=== PATIENT | male | born 1965 | race Caucasian/White ===

== ENCOUNTER 2017-06-16 23:57 | Emergency (ER) | payer OTHER ==
--- NOTE | 2017-06-17 02:00 | RADIOLOGY REPORT (SQ) ---
EXAM DESCRIPTION: CHEST SINGLE VIEW CLINICAL HISTORY: 51 years, Male, cp COMPARISON: None. FINDINGS: Normal lung volume, clear parenchyma, normal cardiac silhouette, and intact bony thorax. IMPRESSION: No acute cardiopulmonary findings.
[2017-06-17 02:07] LABS: ABSOLUTE BASOPHILS # (AUTO) 0.1 10^3/uL (0.0-0.2); ABSOLUTE EOSINOPHILS # (AUTO) 0.1 10^3/uL (0.0-0.6); ABSOLUTE LYMPHOCYTES (AUTO) 1.3 10^3/uL (0.5-4.7); ABSOLUTE MONOCYTES (AUTO) 0.8 10^3/uL (0.1-1.4); EOSINOPHILS % (AUTO) 1.4 % (0-6); HEMATOCRIT 36.3 % (37.9-51.0); HEMOGLOBIN 11.5 g/dL (13.5-17.0); LYMPHOCYTES % (AUTO) 15.7 % (13-45); MEAN CORPUSCULAR HGB CONC 31.7 g/dL (32.0-36.0); MEAN CORPUSCULAR VOLUME 82 fl (80-97); MONOCYTES % (AUTO) 9.3 % (3-13); RED BLOOD COUNT 4.43 10^6/uL (4.35-5.55); RED CELL DISTRIBUTION WIDTH 23.5 % (11.5-14.0); SEGMENTED NEUTROPHILS % (AUTO) 72.6 % (42-78); TOTAL CELLS COUNTED % (AUTO) 100 %; WHITE BLOOD COUNT 8.2 10^3/uL (4.0-10.5)
[2017-06-17 02:09] LABS: PLATELET COUNT 50 10^3/uL (150-450)
[2017-06-17 02:10] LABS: ALANINE AMINOTRANSFERASE 74 U/L (21-72); ALBUMIN 4.3 g/dL (3.5-5.0); ALKALINE PHOSPHATASE 179 U/L (38-126); ANION GAP 19 (5-19); ASPARTATE AMINO TRANSFERASE 278 U/L (17-59); BILIRUBIN,DIRECT 1.1 mg/dL (0.0-0.4); BILIRUBIN,TOTAL 1.7 mg/dL (0.2-1.3); BLOOD UREA NITROGEN 8 mg/dL (7-20); CALCIUM 8.6 mg/dL (8.4-10.2); CARBON DIOXIDE 27 mmol/L (22-30); CHLORIDE 102 mmol/L (98-107); CREATINE KINASE 97 U/L (55-170); GLUCOSE 86 mg/dL (75-110); POTASSIUM 3.7 mmol/L (3.6-5.0); SODIUM 147.8 mmol/L (137-145); TOTAL PROTEIN 7.6 g/dL (6.3-8.2)
--- NOTE | 2017-06-17 02:15 | ER Document Report ---
ED General - General Chief Complaint: Chest Pain Stated Complaint: CHEST PAIN Time Seen by Provider: 06/17/17 02:14 Notes: Patient is a 51-year-old male who presents with complaint of chest pain. He says chest pain is intermittent very sharp shooting pain that is very quick. Rates from the top of the left chest. He says it hurts when he moves a certain way or if he takes a deep breath. Patient has a history of hepatic cirrhosis. He does continue to drink alcohol. Says pain is been there since yesterday afternoon. No other complaints at this time. Patient did just move her Friday. He moved here from [place]. He was followed by a specialist there due to his cirrhosis. He denies any exquisite or new abdominal pain. Denies difficulty breathing. Denies fevers. TRAVEL OUTSIDE OF THE [place] IN LAST 30 DAYS: No - Related Data Allergies/Adverse Reactions: No Known Allergies Allergy (Verified 06/17/17 03:11) Past Medical History - Social History Smoking Status: Current Every Day Smoker Frequency of alcohol use: Heavy Drug Abuse: None Family History: Reviewed & Not Pertinent Review of Systems - Review of Systems Notes: My Normal Review Basic REVIEW OF SYSTEMS: CONSTITUTIONAL : Denies fever, chills, or sweats. Denies recent illness. EENT: Denies eye, ear, throat, or mouth pain or symptoms. Denies nasal or sinus congestion. CARDIOVASCULAR: Intermittent sharp chest pain. RESPIRATORY: Denies cough, cold, or chest congestion. Denies shortness of breath, difficulty breathing, or wheezing. GASTROINTESTINAL: Denies abdominal pain. Denies nausea, vomiting, or diarrhea. Denies constipation. Last BM: GENITOURINARY: Denies difficulty urinating, painful urination, burning, frequency, or blood in urine. MUSCULOSKELETAL: Denies neck or back pain or joint pain or swelling. SKIN: Denies rash or skin lesions. NEUROLOGICAL: Denies altered mental status or loss of consciousness. Denies headache. Denies weakness or paralysis or loss of use of either side. Denies problems with gait or speech. Denies sensory or motor loss. ALL OTHER SYSTEMS REVIEWED AND NEGATIVE. Physical Exam - Vital signs Vitals: Temp Pulse Resp BP Pulse Ox 97.9 F 84 16 132/82 H 97 06/17/17 00:15 06/17/17 00:15 06/17/17 00:15 06/17/17 00:15 06/17/17 00:15 - Notes Notes: General Appearance: Well nourished, alert, cooperative, no acute distress, mild to moderate obvious discomfort. Vitals: reviewed, See vital signs table. Head: no swelling or tenderness to the head Eyes: PERRL, EOMI, Conjuctiva clear Mouth: No decreasd moisture Chest wall: Patient has very easily reproducible pain to palpation over the left upper chest wall at the left costochondral junction. Pain is also made worse when he takes a deep breath and when I have him roll or move. Lungs: No wheezing, No rales, No rhonci, No accessory muscle use, good air exchange bilaterally. Heart: Normal rate, Regular rythm, No murmur, no rub Abdomen: Abdomen is distended but soft from cirrhosis. He does have a umbilical hernia which is easily reducible. She has some mild tenderness when I reduce the hernia. Otherwise remainder of the abdomen is nontender. Extremities: strength 5/5 in all extremities, good pulses in all extremities, no swelling or tenderness in the extremities, no edema. Skin: warm, dry, appropriate color, no rash Neuro: speech clear, oriented x 3, normal affect, responds appropriately to questions. Course - Re-evaluation Re-evalutation: 06/17/17 07:31 Patient's chest pain is very consistent muscle skeletal chest pain and that it is very easily reproducible palpation and also easily reproduced with movement or taking a deep breath. His cardiac enzymes are negative. He looks well. I will give him referral to GI so they can have further management of his liver cirrhosis. I encourage him return to ER if he has worsening pain, difficulty breathing, or feels unwell. Patient agrees with plan will be discharged home. Dictation of this chart was performed using voice recognition software; therefore, there may be some unintended grammatical errors. - Vital Signs Vital signs: Temp Pulse Resp BP Pulse Ox 97.9 F 84 14 116/78 97 06/17/17 00:15 06/17/17 00:15 06/17/17 04:01 06/17/17 04:01 06/17/17 04:01 - Laboratory Result Diagrams: 06/17/17 01:47 06/17/17 01:47 Laboratory results interpreted by me: 06/17/17 06/17/17 01:47 01:47 Hgb 11.5 L Hct 36.3 L MCH 26.0 L MCHC 31.7 L RDW 23.5 H Plt Count 50 L Sodium 147.8 H Total Bilirubin 1.7 H Direct Bilirubin 1.1 H AST 278 H ALT 74 H Alkaline Phosphatase 179 H - EKG Interpretation by Me Additional EKG results interpreted by me: 06/17/17 02:15 EKG is reviewed and interpreted by me. EKG shows normal sinus rhythm with rate of [address] segment elevation or depression. No ischemic T-wave inversions. MS interval, QRS duration are within normal range. QTc interval is slightly prolonged. Discharge - Discharge Clinical Impression: Chest pain Qualifiers: Chest pain type: unspecified Qualified Code(s): R07.9 - Chest pain, unspecified Condition: Good Disposition: HOME, SELF-CARE Instructions: Family Physicians / Practices, Oral Narcotic Medication ([facility]) Additional Instructions: C NORMAL EXAM AND WORKUP: At this time, your examination and workup show no significant abnormality. No significant abnormal physical findings were noted. All laboratory, EKG, and imaging (x-ray) studies that were ordered show no significant abnormality. Although your examination and all studies that were ordered showed no significant abnormal finding, there are no examinations and no studies that are 100% accurate. There is always the possibility that some abnormality could exist and not be detected with physical examination or within the limits and capabilities of laboratory and other studies. You should return or follow up as you were instructed on your visit today for further evaluation if your symptoms do not resolve. CHEST WALL PAIN: Your chest pain may be coming from the chest wall. This is often caused by straining the muscles or joints in the chest during physical activity, direct trauma, coughing, or vigorous vomiting. Persons with arthritis are especially prone to this type of pain, due to inflammation of the cartilage joints near the breast bone. Occasionally, no cause can be found. Rest from strenuous physical activity. This kind of chest pain is usually made worse by movement of the chest. Depending on the symptoms, we may prescribe medicine for pain, muscle relaxation, and antiinflammatory effects. If the pain is new, and seems to be due to muscle strain, cold packs can help. Otherwise, apply gentle warmth to the painful area for 15 minutes every hour or two. You should call contact the doctor immediately if things change. Further evaluation is needed if you develop a fever or cough, if the nature of the pain changes, or if you become short of breath. FOLLOW-UP CARE: If you have been referred to a physician for follow-up care, call the physician s office for an appointment as you were instructed or within the next two days. If you experience worsening or a significant change in your symptoms, notify the physician immediately or return to the Emergency Department at any time for re-evaluation. Please only take the [place] when pain is intractable. Otherwise, take Tylenol for pain. Do not take the [place] when you are intoxicated with alcohol as it may depress your respiratory drive. Please follow up with the GI physician, Dr. Turcios, for further management of your cirrhosis. Please also establish yourself with a local primary care doctor. I have included a list of local primary care doctors. Return to the ER immediately if you have worsening pain, fevers, difficulty breathing, or feel that you are worsening. Referrals: SEBASTIAN TURCIOS MD [ACTIVE STAFF] - Follow up in 3-5 days
[2017-06-17 02:28] LABS: CREATINE KINASE MB 0.66 ng/mL (<4.55); TROPONIN I < 0.012 ng/mL
[2017-06-17] MEDS ORDERED: HYDROCODONE/ACETAMINOPHEN 5-325 MG TABLET PO ONE (02:32)
[2017-06-17] MEDS ORDERED: HYDROCODONE/ACETAMINOPHEN 5-325 MG (6 TAB/ER DISP) PO PRN (03:45)
[2017-06-17 04:17] VITALS: BP 116/78
--- NOTE | 2017-06-17 09:27 | EKG REPORT ---
SEVERITY:- ABNORMAL ECG - SINUS RHYTHM NONSPECIFIC INTRAVENTRICULAR CONDUCTION DELAY LOW VOLTAGE IN FRONTAL LEADS BORDERLINE R WAVE PROGRESSION, ANTERIOR LEADS : Confirmed by: Linda Arellano 17-Jun-2017 09:26:48
== END 2017-06-17 04:30 | disposition home or self-care (01) ==
LOC: ER 23:57
DX: R07.9 Chest pain, unspecified (principal); K74.60 Unspecified cirrhosis of liver; F10.10 Alcohol abuse, uncomplicated; F17.200 Nicotine dependence, unspecified, uncomplicated
CPT/HCPCS: 36415; 71045; 80053; 82550; 82553; 83690; 84484; 85025; 93005; 93010; 99285

== ENCOUNTER 2017-06-17 16:20 | Inpatient (IN) | payer OTHER ==
[2017-06-17] MEDS ORDERED: ONDANSETRON HCL INJ/PF 4 MG/2 ML SDV ONE (16:51)
[2017-06-17] MEDS ORDERED: NORMAL SALINE 250 ML IV PRN (17:04)
[2017-06-17] MEDS ORDERED: PANTOPRAZOLE SODIUM 40 MG VIAL IV ONE (17:07)
[2017-06-17] MEDS ORDERED: OCTREOTIDE ACETATE INJ/PF 100 MCG/1 ML SDV SUBCUT ONE (17:10)
[2017-06-17] MEDS ORDERED: ONDANSETRON HCL INJ/PF 4 MG/2 ML SDV IV ONE ×2 (17:11→17:51)
[2017-06-17 17:14] LABS: INTERNATIONAL RATION (INR) 1.37; PROTHROMBIN TIME 17.7 SEC (11.4-15.4)
[2017-06-17 17:15] LABS: PARTIAL THROMBOPLASTIN TIME 34.3 SEC (23.5-35.8)
[2017-06-17] MEDS ORDERED: FENTANYL CITRATE INJ/PF 100 MCG/2 ML AMPUL IV ONE (17:15)
--- NOTE | 2017-06-17 17:16 | ER Document Report ---
ED GI Bleed / Rectal Pain - General Mode of Arrival: Ambulatory Information source: Patient TRAVEL OUTSIDE OF THE [place] IN LAST 30 DAYS: No <CRISPIN GOMEZ - Last Filed: 06/17/17 19:03> <JAM CABRALES - Last Filed: 06/17/17 19:18> - General Chief Complaint: GI Bleeding Stated Complaint: VOMITING Time Seen by Provider: 06/17/17 16:48 Notes: Patient is a 51 year old male with a history of cirrhosis presents to the emergency department complaining of hematemesis onset 4 hours ago. Patient states that he decided to come to the emergency room after vomiting around a pint of red blood. Patient states he vomited around another pint since being in the emergency department. He further states that there is also some blood clots in his vomit. Patients associated symptoms include chest pain, lower abdominal pain, shortness of breath and dizziness. Patient denies any fevers or bloody stool. Patient states that he believes he acquired Cirrhosis from drinking well water for approximately 10 years when he was in an orphanage. Patient also states that he would like a paracentesis performed stating his last one was 1.5 weeks ago. Patient further states he has had multiple endoscopies looking for varices , but none was ever found. (CRISPIN GOMEZ) - Related Data Allergies/Adverse Reactions: No Known Allergies Allergy (Verified 06/17/17 03:11) Past Medical History - General Information source: Patient - Social History Smoking Status: Current Every Day Smoker Family History: Reviewed & Not Pertinent GI Medical History: Reports: Hx Cirrhosis <CRISPIN GOMEZ - Last Filed: 06/17/17 19:03> - Past Medical History Cardiac Medical History: Reports: Hx Hypertension <JAM CABRALES - Last Filed: 06/17/17 19:18> Review of Systems - Review of Systems Constitutional: No symptoms reported EENT: No symptoms reported Cardiovascular: See HPI, Chest pain, Dizziness Respiratory: See HPI, Short of breath Gastrointestinal: See HPI, Abdominal pain, Vomiting, Blood in vomit Genitourinary: No symptoms reported Male Genitourinary: No symptoms reported Musculoskeletal: No symptoms reported Skin: No symptoms reported Hematologic/Lymphatic: No symptoms reported Neurological/Psychological: No symptoms reported -: Yes All other systems reviewed and negative <CRISPIN GOMEZ - Last Filed: 06/17/17 19:03> Physical Exam <CRISPIN GOMEZ - Last Filed: 06/17/17 19:03> <JAM CABRALES - Last Filed: 06/17/17 19:18> - Vital signs Vitals: Temp Pulse Resp BP Pulse Ox 98.5 F 125 H 30 H 116/90 H 99 06/17/17 16:30 06/17/17 16:30 06/17/17 16:30 06/17/17 16:30 06/17/17 16:30 - Notes Notes: GENERAL: Alert, interacts well. Uncomfortable, breathing rapidly. Vomiting dark red blood, approximately 2 cups in bag at bedside. HEAD: Normocephalic, atraumatic. EYES: Pupils equal, round, and reactive to light. Extraocular movements intact. ENT: Oral mucosa moist, tongue midline. NECK: Full range of motion. Supple. Trachea midline. LUNGS: Poor air movement. No wheezes, rales, or rhonchi. HEART: Tachycardia. No murmurs, gallops, or rubs. ABDOMEN: Abdomen enlarged and soft, no rigidity, fluid wave, no tympany. Umbilical and paraumbilical reducible hernia. Tender to palpation superiorly. Bowel sounds present in all 4 quadrants. EXTREMITIES: Asterixis. Moves all 4 extremities spontaneously. No edema, radial and dorsalis pedis pulses 2/4 bilaterally. No cyanosis. NEUROLOGICAL: Alert and oriented x3. Normal speech. PSYCH: Normal affect, normal mood. SKIN: Warm, dry, normal turgor. Multiple spider angiomas located on back, petechiae, plethora, jaundiced. (CRISPIN GOMEZ) Course - Laboratory Result Diagrams: 06/17/17 17:20 06/17/17 16:45 <CRISPIN GOMEZ - Last Filed: 06/17/17 19:03> - Laboratory Result Diagrams: 06/17/17 17:20 06/17/17 16:45 <JAM CABRALES - Last Filed: 06/17/17 19:18> - Re-evaluation Re-evalutation: 06/17/17 19:16 Patient immediately started on Protonix bolus and drip, octreotide bolus and drip given as well, typed and crossed and given emergency release blood, Dr. Velazquez was contacted for possible emergent endoscopy. He states that he needs to know the patient's INR but then once he knows that he will take the patient for endoscopy. Patient understands why he is n.p.o. Discussed patient with Dr. Kumar hospitalist who agrees to accept the patient to her service as an admission in the intensive care unit. Patient's vomiting was not initially controlled with Zofran, then Reglan was given and this did control his vomiting. A proximally an hour and half after arrival the patient stopped vomiting blood is now only spitting up clear liquids. Hemoglobin is 9.2, platelets are quite low at 33, INR is not as prolonged as I would have expected at 1.37, CMP shows elevated total and direct bilirubin, and elevated anion gap at 22, elevated LFTs with AST of 247, ALT 73, alkaline phosphatase at 147. Ammonia is elevated at 35.7 although it is not causing any altered mental status. Chest x-ray shows no acute process. Patient has stabilized quite a bit. Dr. Velazquez is about to take the patient for endoscopy now. Patient will go to the intensive care unit afterwards. (JAM CABRALES) - Vital Signs Vital signs: Temp Pulse Resp BP Pulse Ox 98.5 F 125 H 17 143/76 H 98 06/17/17 16:30 06/17/17 16:30 06/17/17 18:46 06/17/17 18:46 06/17/17 18:46 - Laboratory Laboratory results interpreted by me: 06/17/17 06/17/17 06/17/17 16:45 16:45 16:45 RBC Hgb Hct MCH RDW Plt Count Seg Neutrophils % Lymphocytes % Absolute Lymphocytes PT 17.7 H Anion Gap 22 H Glucose 129 H Total Bilirubin 2.9 H Direct Bilirubin 1.7 H AST 247 H ALT 73 H Alkaline Phosphatase 147 H Ammonia Crossmatch See Detail 06/17/17 06/17/17 17:20 17:20 RBC 3.52 L Hgb 9.2 L D Hct 28.6 L MCH 26.2 L RDW 23.3 H Plt Count 33 L Seg Neutrophils % 84.5 H Lymphocytes % 6.2 L Absolute Lymphocytes 0.4 L PT Anion Gap Glucose Total Bilirubin Direct Bilirubin AST ALT Alkaline Phosphatase Ammonia 35.7 H Crossmatch Critical Care Note - Critical Care Note Total time excluding time spent on procedures (mins): 60 <JAM CABRALES - Last Filed: 06/17/17 19:18> Discharge <CRISPIN GOMEZ - Last Filed: 06/17/17 19:03> - Discharge Admitting Provider: Hospitalist - [facility] Unit Admitted: ICU <JAM CABRALES - Last Filed: 06/17/17 19:18> - Discharge Clinical Impression: Upper GI bleed Liver failure Qualifiers: Liver failure chronicity: chronic Hepatic coma status: without hepatic coma Qualified Code(s): K72.10 - Chronic hepatic failure without coma Ascites Qualifiers: Ascites type: other type Qualified Code(s): R18.8 - Other ascites Condition: Critical Disposition: ADMITTED INPATIENT Scribe Attestation: 06/17/17 19:17 I personally performed the services described in the documentation, reviewed and edited the documentation which was dictated to the scribe in my presence, and it accurately records my words and actions. (JAM CABRALES) Scribe Documentation - Scribe Written by Shabanae:: Uriah Stringer, 06/17/2017 17:41 acting as scribe for :: John <CRISPIN GOMEZ - Last Filed: 06/17/17 19:03>
[2017-06-17 17:22] LABS: ALANINE AMINOTRANSFERASE 73 U/L (21-72); ALBUMIN 4.2 g/dL (3.5-5.0); ALKALINE PHOSPHATASE 147 U/L (38-126); ASPARTATE AMINO TRANSFERASE 247 U/L (17-59); BILIRUBIN,DIRECT 1.7 mg/dL (0.0-0.4); BILIRUBIN,TOTAL 2.9 mg/dL (0.2-1.3); BLOOD UREA NITROGEN 10 mg/dL (7-20); CALCIUM 8.7 mg/dL (8.4-10.2); GLUCOSE 129 mg/dL (75-110); TOTAL PROTEIN 7.6 g/dL (6.3-8.2)
--- NOTE | 2017-06-17 17:26 | RADIOLOGY REPORT (SQ) ---
EXAM DESCRIPTION: CHEST SINGLE VIEW COMPLETED DATE/TIME: 06/17/2017 5:19 pm REASON FOR STUDY: vomiting bright red blood COMPARISON: 06/17/2017 EXAM PARAMETERS: NUMBER OF VIEWS: One view. TECHNIQUE: Single frontal radiographic view of the chest acquired. RADIATION DOSE: NA LIMITATIONS: None. FINDINGS: LUNGS AND PLEURA: No opacities, masses or pneumothorax. No pleural effusion. MEDIASTINUM AND HILAR STRUCTURES: No masses. Contour normal. HEART AND VASCULAR STRUCTURES: Heart normal in size. Normal vasculature. BONES: No acute findings. HARDWARE: None in the chest. OTHER: No other significant finding. IMPRESSION: NO ACUTE RADIOGRAPHIC FINDING IN THE CHEST. TECHNICAL DOCUMENTATION: JOB ID: [id number] [employer]- All Rights Reserved
[2017-06-17 17:37] LABS: ANION GAP 22 (5-19); CHLORIDE 98 mmol/L (98-107); POTASSIUM 3.6 mmol/L (3.6-5.0)
[2017-06-17 17:38] LABS: CARBON DIOXIDE 22 mmol/L (22-30); SODIUM 142.4 mmol/L (137-145)
[2017-06-17 17:39] LABS: ABSOLUTE BASOPHILS # (AUTO) 0.1 10^3/uL (0.0-0.2); ABSOLUTE LYMPHOCYTES (AUTO) 0.4 10^3/uL (0.5-4.7); ABSOLUTE MONOCYTES (AUTO) 0.6 10^3/uL (0.1-1.4); ABSOLUTE NEUT (AUTO) 5.7 10^3/uL (1.7-8.2); BASOPHILS % (AUTO) 0.9 % (0-2); HEMATOCRIT 28.6 % (37.9-51.0); LYMPHOCYTES % (AUTO) 6.2 % (13-45); MEAN CORPUSCULAR HEMOGLOBIN 26.2 pg (27.0-33.4); MEAN CORPUSCULAR HGB CONC 32.3 g/dL (32.0-36.0); MEAN CORPUSCULAR VOLUME 81 fl (80-97); MONOCYTES % (AUTO) 8.4 % (3-13); RED BLOOD COUNT 3.52 10^6/uL (4.35-5.55); RED CELL DISTRIBUTION WIDTH 23.3 % (11.5-14.0); SEGMENTED NEUTROPHILS % (AUTO) 84.5 % (42-78); TOTAL CELLS COUNTED % (AUTO) 100 %; WHITE BLOOD COUNT 6.7 10^3/uL (4.0-10.5)
[2017-06-17] MEDS ORDERED: OCTREOTIDE ACETATE INJ/PF 100 MCG/1 ML SDV INJ PRN (17:39)
[2017-06-17 17:40] LABS: HEMOGLOBIN 9.2 g/dL (13.5-17.0)
[2017-06-17] MEDS: PANTOPRAZOLE SODIUM 40 MG VIAL IV PRN (17:40)
[2017-06-17 17:41] LABS: PLATELET COUNT 33 10^3/uL (150-450)
[2017-06-17] MEDS ORDERED: METOCLOPRAMIDE HCL INJ/PF 10 MG/2 ML SDV IV ONE (17:51)
[2017-06-17] MEDS ORDERED: DEXTROSE 40% GEL 15 GM TUBE PO PRN ×2 (17:52)
[2017-06-17] MEDS ORDERED: IPRATROPIUM/ALBUTEROL 0.5-2.5 MG/3 ML AMPUL NEB PRN (17:52)
[2017-06-17] MEDS ORDERED: GLUCAGON,HUMAN RECOMB 1 MG INJ SUBCUT PRN (17:52)
[2017-06-17] MEDS ORDERED: DEXTROSE 50%-WATER 25 GM/50 ML DISP.SYRIN IV PRN ×2 (17:52)
[2017-06-17] MEDS ORDERED: NORMAL SALINE 1000 ML 1,000 ML IV SCH (18:00)
[2017-06-17] MEDS: NORMAL SALINE 500 ML with OCTREOTIDE ACETATE 500 MCG IV PRN ×2 (18:12)
[2017-06-17] MEDS ORDERED: PHYTONADIONE INJ 10 MG/1 ML AMPULE SUBCUT ONE (19:00)
[2017-06-17 19:12] LABS: ABSOLUTE BASOPHILS # (AUTO) 0.1 10^3/uL (0.0-0.2); ABSOLUTE LYMPHOCYTES (AUTO) 0.4 10^3/uL (0.5-4.7); ABSOLUTE MONOCYTES (AUTO) 0.8 10^3/uL (0.1-1.4); ABSOLUTE NEUT (AUTO) 6.7 10^3/uL (1.7-8.2); HEMATOCRIT 29.3 % (37.9-51.0); HEMOGLOBIN 9.5 g/dL (13.5-17.0); LYMPHOCYTES % (AUTO) 5.3 % (13-45); MEAN CORPUSCULAR HEMOGLOBIN 26.4 pg (27.0-33.4); MEAN CORPUSCULAR HGB CONC 32.5 g/dL (32.0-36.0); MEAN CORPUSCULAR VOLUME 81 fl (80-97); MONOCYTES % (AUTO) 10.1 % (3-13); RED BLOOD COUNT 3.61 10^6/uL (4.35-5.55); RED CELL DISTRIBUTION WIDTH 23.1 % (11.5-14.0); SEGMENTED NEUTROPHILS % (AUTO) 83.6 % (42-78); TOTAL CELLS COUNTED % (AUTO) 100 %
[2017-06-17 19:17] LABS: PLATELET COUNT 32 10^3/uL (150-450)
[2017-06-17] MEDS ORDERED: PROPOFOL INJ 200 MG/20 ML VIAL IV ONE (19:37)
[2017-06-17] MEDS ORDERED: EPINEPHRINE INJ 1 MG/10 ML DISP.SYRIN ONE (19:39)
[2017-06-17] MEDS ORDERED: MORPHINE SULFATE 10 MG/ML INJ IV PRN (20:16)
[2017-06-17] MEDS ORDERED: OXYCODONE-ACETAMINOPHEN 5-325 MG TABLET PO PRN ×2 (20:16)
[2017-06-17] MEDS ORDERED: PROMETHAZINE HCL INJ 25 MG/1 ML VIAL IV PRN ×2 (20:16)
[2017-06-17] MEDS ORDERED: FENTANYL CITRATE INJ/PF 100 MCG/2 ML AMPUL IV PRN ×3 (20:16)
[2017-06-17] MEDS ORDERED: MEPERIDINE HCL/PF INJ 25 MG/1 ML DISP.SYRIN IV PRN (20:16)
[2017-06-17] MEDS ORDERED: DIPHENHYDRAMINE HCL 50 MG/ML VIAL IV PRN (20:16)
--- NOTE | 2017-06-17 20:34 | Operative Report ---
Operative Report DATE OF SURGERY: 06/17/17 Operative Report: The risks benefits and alternatives of the procedure explained to the patient in detail and informed consent is obtained.A GIF Olympus video scope was inserted into the patient's mouth and hypopharynx, the esophagus is identified intubated and insufflated ,the scope was then advanced through the esophagus stomach and duodenum, retroflexion maneuver is done, the esophagus stomach and first and second portions of the duodenum examined PREOPERATIVE DIAGNOSIS: Melena, GI bleeding rule out varices POSTOPERATIVE DIAGNOSIS: 2 columns of grade 2 varices that were prophylactically banded OPERATION: EGD with esophageal variceal banding SURGEON: SEBASTIAN TURCIOS ANESTHESIA: LMAC TISSUE REMOVED OR ALTERED: None. COMPLICATIONS: None. ESTIMATED BLOOD LOSS: None. INTRAOPERATIVE FINDINGS: As noted above. PROCEDURE: Patient tolerated procedure well. No immediate postprocedure complications are noted. He sent straight to the ICU following the procedure. PPI drip He may need a Sandostatin drip as well Transfuse as necessary We will follow-up as needed
--- NOTE | 2017-06-17 20:44 | PDOC CONSULTATION ---
Consultation Consult Date: 06/17/17 Attending physician:: SEBASTIAN TURCIOS Consult reason:: hematemesis, abnormal LFT. cirrhosis, excessive use of alcohol History of Present Illness Admission Date/PCP: 06/17/17 17:33 [facility] MD History of Present Illness: ALO RODRIGUEZ is a 51 year old male I was called to see this patient by the ED physician patient is an alcoholic that presented with hematemesis x 2 of dark blood there is no hemodynamic instability patient states has been scoped in the past, does not remember if he had varices denies the use of any NSAIDS patient continues to use alcohol on a daily basis according to the daughter. His INR is in the normal range he will need to be admitted to the [facility] prior to that will arrange urgent EGD patient will need Propofol sedation he is at risk for DT's he is in the process of being transfused patient to be admitted to the ICU Past Medical History Cardiac Medical History: Reports: Hypertension GI Medical History: Reports: Cirrhosis Social History Smoking Status: Current Every Day Smoker - Advance Directive Resuscitation Status: Full Code Family History Family History: Reviewed & Not Pertinent Parental Family History Reviewed: Yes Children Family History Reviewed: Unknown Sibling(s) Family History Reviewed.: Unknown Medication/Allergy Allergies/Adverse Reactions: No Known Allergies Allergy (Verified 06/17/17 03:11) Review of Systems Constitutional: ABSENT: fever(s), headache(s), night sweats, weakness Eyes: ABSENT: visual disturbances Ears: ABSENT: hearing changes Nose, Mouth, and Throat: ABSENT: mouth pain, sore throat Cardiovascular: ABSENT: edema, orthropnea, palpitations Respiratory: ABSENT: dyspnea, hemoptysis Gastrointestinal: PRESENT: melena, nausea, vomiting. ABSENT: diarrhea Genitourinary: ABSENT: dysuria, hematuria Musculoskeletal: ABSENT: deformity, joint swelling Integumentary: ABSENT: pruritus Neurological: ABSENT: syncope, tingling, tremor(s), vertigo Endocrine: ABSENT: polydipsia, polyphagia, polyuria Hematologic/Lymphatic: ABSENT: easy bruising Physical Exam Vital Signs: Temp Pulse Resp BP Pulse Ox 98 F 134 H 25 H 125/83 98 06/17/17 19:15 06/17/17 19:15 06/17/17 19:15 06/17/17 19:15 06/17/17 19:15 Intake & Output 06/16/17 06/17/17 06/18/17 06:59 06:59 06:59 Intake Total 290 Balance 290 General appearance: PRESENT: no acute distress, well-developed, well-nourished Head exam: PRESENT: atraumatic, normocephalic Eye exam: PRESENT: EOMI, PERRLA, scleral icterus. ABSENT: nystagmus, periorbital swelling Mouth exam: PRESENT: moist, neck supple Throat exam: ABSENT: tonsillar exudate, tonsillogmegaly Neck exam: ABSENT: meningismus, tenderness, thyromegaly Respiratory exam: PRESENT: symmetrical, unlabored. ABSENT: tachypnea, wheezes Cardiovascular exam: PRESENT: RRR, +S1, +S2 GI/Abdominal exam: PRESENT: soft. ABSENT: rebound, rigid, tenderness Extremities exam: ABSENT: joint swelling Musculoskeletal exam: PRESENT: full ROM Neurological exam: PRESENT: oriented to time, oriented to situation, CN II-XII grossly intact Psychiatric exam: PRESENT: appropriate affect Focused psych exam: PRESENT: restlessness Skin exam: PRESENT: normal color. ABSENT: mottled, pallor, petechiae, urticaria , vesicles Results Laboratory Results: 06/17/17 18:25 06/17/17 18:25 WBC 8.0 RBC 3.61 L Hgb 9.5 L Hct 29.3 L MCV 81 MCH 26.4 L MCHC 32.5 RDW 23.1 H Plt Count 32 L Seg Neutrophils % 83.6 H Lymphocytes % 5.3 L Monocytes % 10.1 Eosinophils % 0.0 Basophils % 1.0 Absolute Neutrophils 6.7 Absolute Lymphocytes 0.4 L Absolute Monocytes 0.8 Absolute Eosinophils 0.0 Absolute Basophils 0.1 Impressions: Chest X-Ray 06/17/17 17:05 IMPRESSION: NO ACUTE RADIOGRAPHIC FINDING IN THE CHEST. Assessment & Plan - Diagnosis (1) Abnormal LFTs Plan: likely secondary to alcoholic hepatitis patient will need to be screened for viral hepatitis A,B,C would expect his bilirubin to rise as the days progress (2) Ascites Qualifiers: Ascites type: other type Qualified Code(s): R18.8 - Other ascites Plan: will need paracentesis at some point will need to be performed under ultrasound guidance his INR is within the normal range following that he will need maximal diuretics lasix and aldactone (3) Liver failure Qualifiers: Liver failure chronicity: chronic Hepatic coma status: without hepatic coma Qualified Code(s): K72.10 - Chronic hepatic failure without coma Plan: due to alcohol abuse at risk for DT's will need ativan drip check phosphorus (4) Upper GI bleed Plan: will need urgent EGD could have varices vs possible peptic ulcer disease Risks, benefits and alternatives are discussed he will need Propofol sedation, he is not likely to be able to be sedated with consicous sedation medications agree with transfusion PPI drip Sandostatin drip as well
[2017-06-17] MEDS: IPRATROPIUM/ALBUTEROL 0.5-2.5 MG/3 ML AMPUL NEB SCH (21:17)
[2017-06-17] MEDS: LORAZEPAM INJ 2 MG/1 ML VIAL IV PRN (21:28)
[2017-06-17] MEDS ORDERED: INFLUENZA ADLT QUAD (36MOS+) 2017-18 VAC 0.5 ML SYR IM PRN (23:12)
[2017-06-18] MEDS: THIAMINE HCL 100 MG, FOLIC ACID 1 MG in NORMAL SALINE 250 ML IV SCH ×2 (01:20→23:38)
[2017-06-18] MEDS: LORAZEPAM INJ 2 MG/1 ML VIAL IV PRN ×4 (01:36→23:34)
[2017-06-18] MEDS: PANTOPRAZOLE SODIUM 40 MG VIAL IV PRN (01:46)
[2017-06-18] MEDS: NORMAL SALINE 500 ML with OCTREOTIDE ACETATE 500 MCG IV PRN ×4 (01:46→13:39)
[2017-06-18 02:18] LABS: URINE AMPHETAMINES SCREEN NEGATIVE; URINE BARBITURATES SCREEN NEGATIVE; URINE BENZODIAZEPINES SCREEN NEGATIVE; URINE COCAINE SCREEN NEGATIVE; URINE MARIJUANA (THC) SCREEN NEGATIVE; URINE METHADONE SCREEN NEGATIVE; URINE PHENCYCLIDINE SCREEN NEGATIVE
--- NOTE | 2017-06-18 02:29 | PDOC H&P ---
History of Present Illness Admission Date/PCP: 06/17/17 17:33 LA KC MD Patient complains of: Vomiting blood History of Present Illness: ALO RODRIGUEZ is a 51 year old male who is recently relocated from [place] and accompanied by his daughter who has an unclear past medical history though strong empiric evidence of alcoholic cirrhosis complicated by alcohol dependence , esophageal varices, hepatic encephalopathy, coagulopathy, thrombocytopenia and ascites. Patient is an unreliable historian but states he had 4 hours of vomiting bright red blood with an estimated blood loss of 1 pint. In the emergency room he has recurrent episodes of coffee-ground emesis and tremor. He is found to have anemia with a hemoglobin 9.2, thrombocytopenia of 50, AST of 250 ALT of 70. IV Sandostatin, Protonix, 2 units of packed red blood cells and GI consult is initiated and the hospitalist is consulted for admission. Patient denies noncompliance with medication and lifestyle however daughter clarifies patient consuming large amounts of alcohol on a daily basis and not taking medications regularly. Past Medical History Cardiac Medical History: Reports: Hypertension GI Medical History: Reports: Cirrhosis Psychiatric Medical History: Reports: Substance Abuse, Tobacco Dependency Social History Information Source: Patient, Relative Lives with: Family Smoking Status: Current Every Day Smoker Frequency of Alcohol Use: Heavy Amount of Alcoholic Beverages Per Day: 1 gallon of vodka a day Hx Recreational Drug Use: No Hx Prescription Drug Abuse: No - Advance Directive Resuscitation Status: Full Code Family History Family History: COPD Parental Family History Reviewed: Yes Children Family History Reviewed: Yes Sibling(s) Family History Reviewed.: Yes Medication/Allergy Allergies/Adverse Reactions: No Known Allergies Allergy (Verified 06/17/17 03:11) Review of Systems Constitutional: ABSENT: chills, fever(s), headache(s), weight gain, weight loss Eyes: ABSENT: visual disturbances Ears: ABSENT: hearing changes Cardiovascular: ABSENT: chest pain, dyspnea on exertion, edema, orthropnea, palpitations Respiratory: ABSENT: cough, hemoptysis Gastrointestinal: ABSENT: abdominal pain, constipation, diarrhea, hematemesis, hematochezia, nausea, vomiting Genitourinary: ABSENT: dysuria, hematuria Musculoskeletal: ABSENT: joint swelling Integumentary: ABSENT: rash, wounds Neurological: ABSENT: abnormal gait, abnormal speech, confusion, dizziness, focal weakness, syncope Psychiatric: ABSENT: anxiety, depression, homidical ideation, suicidal ideation Endocrine: ABSENT: cold intolerance, heat intolerance, polydipsia, polyuria Hematologic/Lymphatic: ABSENT: easy bleeding, easy bruising Physical Exam Vital Signs: Temp Pulse Resp BP Pulse Ox 100.6 F H 107 H 17 122/84 95 06/18/17 01:22 06/18/17 01:22 06/18/17 01:22 06/18/17 01:22 06/18/17 01:22 Intake & Output 06/16/17 06/17/17 06/18/17 11:59 11:59 11:59 Intake Total 590 Output Total 250 Balance 340 Weight 85.5 kg General appearance: PRESENT: disheveled, mild distress, thin Head exam: PRESENT: atraumatic, normocephalic Eye exam: PRESENT: conjunctiva pink, EOMI, PERRLA. ABSENT: scleral icterus Ear exam: PRESENT: normal external ear exam Mouth exam: PRESENT: moist, tongue midline Neck exam: ABSENT: carotid bruit, JVD, lymphadenopathy, thyromegaly Respiratory exam: PRESENT: clear to auscultation silvano. ABSENT: rales, rhonchi, wheezes Cardiovascular exam: PRESENT: tachycardia. ABSENT: diastolic murmur, rubs, systolic murmur Pulses: PRESENT: normal dorsalis pedis pul Vascular exam: PRESENT: normal capillary refill GI/Abdominal exam: PRESENT: ascites, distended, hyperactive bowel sounds, tenderness, other - Nontender ventral hernia Rectal exam: PRESENT: deferred Extremities exam: PRESENT: full ROM. ABSENT: calf tenderness, clubbing, pedal edema Neurological exam: PRESENT: alert, altered, awake, oriented to person, oriented to place, oriented to situation, CN II-XII grossly intact. ABSENT: motor sensory deficit Psychiatric exam: PRESENT: agitated Skin exam: PRESENT: dry, intact, warm. ABSENT: cyanosis, rash Results Laboratory Results: 06/17/17 18:25 06/17/17 18:25 WBC 8.0 RBC 3.61 L Hgb 9.5 L Hct 29.3 L MCV 81 MCH 26.4 L MCHC 32.5 RDW 23.1 H Plt Count 32 L Seg Neutrophils % 83.6 H Lymphocytes % 5.3 L Monocytes % 10.1 Eosinophils % 0.0 Basophils % 1.0 Absolute Neutrophils 6.7 Absolute Lymphocytes 0.4 L Absolute Monocytes 0.8 Absolute Eosinophils 0.0 Absolute Basophils 0.1 Impressions: Chest X-Ray 06/17/17 17:05 IMPRESSION: NO ACUTE RADIOGRAPHIC FINDING IN THE CHEST. Assessment & Plan - Diagnosis (1) Upper GI bleed Is this a current diagnosis for this admission?: Yes Plan: ICU admission is alcoholic gastritis. IV Sandostatin and Protonix initiated, discussed with gastroenterology senior telecommunications consultant for endoscopy. Packed red blood cells ordered follow-up CBC and INR. (2) Liver failure Qualifiers: Liver failure chronicity: chronic Hepatic coma status: without hepatic coma Qualified Code(s): K72.10 - Chronic hepatic failure without coma Is this a current diagnosis for this admission?: Yes Plan: Evaluate hepatitis profile 4, current viral hepatitis with alcohol use. Supportive measures (3) DTs (delirium tremens) Is this a current diagnosis for this admission?: Yes Plan: Supportive measures, thiamine folate and Ativan. Consider reevaluation for transfer to outpatient rehab with [place] [facility] (4) Coagulopathy Is this a current diagnosis for this admission?: Yes Plan: Subcu vitamin K initiated consider FFP (5) Thrombocytopenia Is this a current diagnosis for this admission?: Yes Plan: Secondary to alcoholism, avoid antiplatelet agents. Follow-up CBC - Time Time Spent: 50 to 70 Minutes - Inpatient Certification Medical Necessity: Need Close Monitoring Due to Risk of Patient Decompensation
[2017-06-18 03:10] LABS: ABSOLUTE BASOPHILS # (AUTO) 0.1 10^3/uL (0.0-0.2); ABSOLUTE LYMPHOCYTES (AUTO) 0.9 10^3/uL (0.5-4.7); ABSOLUTE MONOCYTES (AUTO) 0.9 10^3/uL (0.1-1.4); ABSOLUTE NEUT (AUTO) 5.3 10^3/uL (1.7-8.2); BASOPHILS % (AUTO) 0.7 % (0-2); EOSINOPHILS % (AUTO) 0.2 % (0-6); HEMATOCRIT 28.9 % (37.9-51.0); HEMOGLOBIN 9.6 g/dL (13.5-17.0); LYMPHOCYTES % (AUTO) 12.5 % (13-45); MEAN CORPUSCULAR HEMOGLOBIN 26.9 pg (27.0-33.4); MEAN CORPUSCULAR HGB CONC 33.3 g/dL (32.0-36.0); MEAN CORPUSCULAR VOLUME 81 fl (80-97); MONOCYTES % (AUTO) 12.3 % (3-13); RED BLOOD COUNT 3.58 10^6/uL (4.35-5.55); RED CELL DISTRIBUTION WIDTH 21.7 % (11.5-14.0); SEGMENTED NEUTROPHILS % (AUTO) 74.3 % (42-78); TOTAL CELLS COUNTED % (AUTO) 100 %; WHITE BLOOD COUNT 7.2 10^3/uL (4.0-10.5)
[2017-06-18 03:18] LABS: PLATELET COUNT 22 10^3/uL (150-450)
[2017-06-18 03:45] LABS: ALANINE AMINOTRANSFERASE 68 U/L (21-72); ALBUMIN 3.8 g/dL (3.5-5.0); ALKALINE PHOSPHATASE 121 U/L (38-126); ANION GAP 12 (5-19); ASPARTATE AMINO TRANSFERASE 196 U/L (17-59); BILIRUBIN,DIRECT 2.1 mg/dL (0.0-0.4); BILIRUBIN,TOTAL 4.5 mg/dL (0.2-1.3); BLOOD UREA NITROGEN 13 mg/dL (7-20); CALCIUM 8.2 mg/dL (8.4-10.2); CARBON DIOXIDE 29 mmol/L (22-30); CHLORIDE 101 mmol/L (98-107); GLUCOSE 112 mg/dL (75-110); POTASSIUM 4.2 mmol/L (3.6-5.0); SODIUM 142.3 mmol/L (137-145); TOTAL PROTEIN 6.5 g/dL (6.3-8.2)
--- NOTE | 2017-06-18 07:50 | PDOC PROGRESS REPORT ---
Subjective Progress Note for:: 06/18/17 Subjective:: patient underwent EGD last night did have some old blood in the stomach I had to band 2 column of varices that needed to be banded Hgb is stable overnight in ICU following the procedure I had spoken to patient's daughter Plt count this am has dropped to 22K since < 20 could be a risk of spontaneous bleeding, would probably consider transfusion this likely reflects significant cirrhosis at risk of DT's given the amount of alcohol that he consumes on a daily basis LFT's are increasing, I do suspect some alcoholic hepatitis going on as well Reason For Visit: UPPER GI BLEED, HEPATIC CIRRHOSIS Physical Exam Vital Signs: Temp Pulse Resp BP Pulse Ox 100.6 F H 85 21 H 135/84 H 91 L 06/18/17 01:22 06/18/17 07:38 06/18/17 06:14 06/18/17 06:14 06/18/17 06:14 Intake & Output 06/17/17 06/18/17 06/19/17 06:59 06:59 06:59 Intake Total 590 Output Total 250 Balance 340 Weight 85.8 kg General appearance: PRESENT: well-developed, well-nourished Head exam: PRESENT: atraumatic, normocephalic Eye exam: PRESENT: EOMI, PERRLA, scleral icterus. ABSENT: periorbital swelling Mouth exam: PRESENT: moist, neck supple Throat exam: ABSENT: tonsillar exudate, tonsillogmegaly Neck exam: ABSENT: meningismus, tenderness, thyromegaly Respiratory exam: PRESENT: symmetrical. ABSENT: tachypnea, wheezes Cardiovascular exam: PRESENT: RRR, +S1, +S2 GI/Abdominal exam: PRESENT: soft. ABSENT: Li's sign, rebound, rigid, tenderness Extremities exam: ABSENT: joint swelling Musculoskeletal exam: PRESENT: full ROM Neurological exam: PRESENT: CN II-XII grossly intact Focused psych exam: PRESENT: restlessness Skin exam: PRESENT: normal color. ABSENT: mottled, pallor, urticaria, vesicles Results Laboratory Results: 06/18/17 03:01 06/18/17 03:01 06/17/17 06/18/17 06/18/17 18:25 03:01 03:01 WBC 8.0 7.2 RBC 3.61 L 3.58 L Hgb 9.5 L 9.6 L Hct 29.3 L 28.9 L MCV 81 81 MCH 26.4 L 26.9 L MCHC 32.5 33.3 RDW 23.1 H 21.7 H Plt Count 32 L 22 L* Seg Neutrophils % 83.6 H 74.3 Lymphocytes % 5.3 L 12.5 L Monocytes % 10.1 12.3 Eosinophils % 0.0 0.2 Basophils % 1.0 0.7 Absolute Neutrophils 6.7 5.3 Absolute Lymphocytes 0.4 L 0.9 Absolute Monocytes 0.8 0.9 Absolute Eosinophils 0.0 0.0 Absolute Basophils 0.1 0.1 Sodium 142.3 Potassium 4.2 Chloride 101 Carbon Dioxide 29 Anion Gap 12 BUN 13 Creatinine 0.63 Est GFR ( Amer) > 60 Est GFR (Non-Af Amer) > 60 Glucose 112 H Calcium 8.2 L Total Bilirubin 4.5 H AST 196 H ALT 68 Alkaline Phosphatase 121 Total Protein 6.5 Albumin 3.8 Impressions: Chest X-Ray 06/17/17 17:05 IMPRESSION: NO ACUTE RADIOGRAPHIC FINDING IN THE CHEST. Assessment & Plan - Diagnosis (1) Abnormal LFTs Plan: component of alcoholic hepatitis continue to monitor would expect continued increase in total bilirubin check ultrasound to exclude possible choledocholithiasis (2) Ascites Qualifiers: Ascites type: other type Qualified Code(s): R18.8 - Other ascites Plan: should undergo paracentesis at some point with drainage maximize diuretic therapy (3) Liver failure Qualifiers: Liver failure chronicity: chronic Hepatic coma status: without hepatic coma Qualified Code(s): K72.10 - Chronic hepatic failure without coma Is this a current diagnosis for this admission?: Yes (4) Upper GI bleed Is this a current diagnosis for this admission?: Yes Plan: due to varices this has been banded Hgb is stable (5) DTs (delirium tremens) Is this a current diagnosis for this admission?: Yes Plan: ativan drip is needed (6) Thrombocytopenia Is this a current diagnosis for this admission?: Yes Plan: would consider transfusion reflection of significant portal hypertension due to cirrhosis - Time Time Spent with patient: 25-34 minutes
[2017-06-18] MEDS: IPRATROPIUM/ALBUTEROL 0.5-2.5 MG/3 ML AMPUL NEB SCH ×2 (08:40→20:36)
[2017-06-18 09:54] LABS: ABSOLUTE BASOPHILS # (AUTO) 0.1 10^3/uL (0.0-0.2); ABSOLUTE LYMPHOCYTES (AUTO) 0.6 10^3/uL (0.5-4.7); ABSOLUTE MONOCYTES (AUTO) 0.7 10^3/uL (0.1-1.4); ABSOLUTE NEUT (AUTO) 5.3 10^3/uL (1.7-8.2); BASOPHILS % (AUTO) 1.1 % (0-2); EOSINOPHILS % (AUTO) 0.7 % (0-6); HEMATOCRIT 28.8 % (37.9-51.0); HEMOGLOBIN 9.4 g/dL (13.5-17.0); LYMPHOCYTES % (AUTO) 9.4 % (13-45); MEAN CORPUSCULAR HEMOGLOBIN 26.8 pg (27.0-33.4); MEAN CORPUSCULAR HGB CONC 32.8 g/dL (32.0-36.0); MEAN CORPUSCULAR VOLUME 82 fl (80-97); MONOCYTES % (AUTO) 10.7 % (3-13); RED BLOOD COUNT 3.53 10^6/uL (4.35-5.55); RED CELL DISTRIBUTION WIDTH 21.9 % (11.5-14.0); SEGMENTED NEUTROPHILS % (AUTO) 78.1 % (42-78); TOTAL CELLS COUNTED % (AUTO) 100 %; WHITE BLOOD COUNT 6.7 10^3/uL (4.0-10.5)
[2017-06-18 10:29] LABS: PLATELET COUNT 20 10^3/uL (150-450)
[2017-06-18] MEDS: NORMAL SALINE 100 ML with PANTOPRAZOLE SODIUM 80 MG IV PRN ×4 (11:28→23:34)
[2017-06-18 12:52] LABS: PATH REVIEW PATHOLOGIST REVIEWED
[2017-06-18] MEDS: LORAZEPAM INJ 2 MG/1 ML VIAL IV SCH ×2 (15:41→20:42)
[2017-06-18 17:42] LABS: ABSOLUTE BASOPHILS # (AUTO) 0.1 10^3/uL (0.0-0.2); ABSOLUTE EOSINOPHILS # (AUTO) 0.1 10^3/uL (0.0-0.6); ABSOLUTE LYMPHOCYTES (AUTO) 0.7 10^3/uL (0.5-4.7); ABSOLUTE MONOCYTES (AUTO) 0.7 10^3/uL (0.1-1.4); ABSOLUTE NEUT (AUTO) 5.6 10^3/uL (1.7-8.2); EOSINOPHILS % (AUTO) 1.1 % (0-6); HEMATOCRIT 27.7 % (37.9-51.0); LYMPHOCYTES % (AUTO) 10.3 % (13-45); MEAN CORPUSCULAR HGB CONC 32.7 g/dL (32.0-36.0); MEAN CORPUSCULAR VOLUME 83 fl (80-97); MONOCYTES % (AUTO) 9.5 % (3-13); RED BLOOD COUNT 3.35 10^6/uL (4.35-5.55); RED CELL DISTRIBUTION WIDTH 22.3 % (11.5-14.0); SEGMENTED NEUTROPHILS % (AUTO) 78.1 % (42-78); TOTAL CELLS COUNTED % (AUTO) 100 %; WHITE BLOOD COUNT 7.2 10^3/uL (4.0-10.5)
[2017-06-18 18:06] LABS: PLATELET COUNT 33 10^3/uL (150-450)
--- NOTE | 2017-06-18 18:07 | PDOC PROGRESS REPORT ---
Subjective Progress Note for:: 06/18/17 Subjective:: Doing a little better. He is hungry, normal hematemesis. Still with intermittent abdominal pain. He watches, no chest pain or shortness of breath, no palpitations. Reason For Visit: UPPER GI BLEED, HEPATIC CIRRHOSIS Physical Exam Vital Signs: Temp Pulse Resp BP Pulse Ox 98.3 F 76 16 110/64 96 06/18/17 16:06 06/18/17 16:06 06/18/17 16:06 06/18/17 16:06 06/18/17 16:06 Intake & Output 06/17/17 06/18/17 06/19/17 06:59 06:59 06:59 Intake Total 590 203 Output Total 250 260 Balance 340 -57 Weight 85.8 kg Additional comments: GEN: NAD, well-deloped, well-nourished NECK supple, no JVD CV: RRR, NL S1S2 ABDOMEN Soft, mild to moderate epigastric tenderness, no rebound or guarding, + BS EXTERMITIES: No e/c/c NEURO: Alert, oriented 3 Results Laboratory Results: 06/18/17 03:01 06/17/17 06/18/17 06/18/17 18:25 03:01 03:01 WBC 8.0 7.2 RBC 3.61 L 3.58 L Hgb 9.5 L 9.6 L Hct 29.3 L 28.9 L MCV 81 81 MCH 26.4 L 26.9 L MCHC 32.5 33.3 RDW 23.1 H 21.7 H Plt Count 32 L 22 L* Seg Neutrophils % 83.6 H 74.3 Lymphocytes % 5.3 L 12.5 L Monocytes % 10.1 12.3 Eosinophils % 0.0 0.2 Basophils % 1.0 0.7 Absolute Neutrophils 6.7 5.3 Absolute Lymphocytes 0.4 L 0.9 Absolute Monocytes 0.8 0.9 Absolute Eosinophils 0.0 0.0 Absolute Basophils 0.1 0.1 Sodium 142.3 Potassium 4.2 Chloride 101 Carbon Dioxide 29 Anion Gap 12 BUN 13 Creatinine 0.63 Est GFR ( Amer) > 60 Est GFR (Non-Af Amer) > 60 Glucose 112 H Calcium 8.2 L Total Bilirubin 4.5 H AST 196 H ALT 68 Alkaline Phosphatase 121 Total Protein 6.5 Albumin 3.8 06/18/17 06/18/17 09:36 15:30 WBC 6.7 Cancelled RBC 3.53 L Cancelled Hgb 9.4 L Cancelled Hct 28.8 L Cancelled MCV 82 Cancelled MCH 26.8 L Cancelled MCHC 32.8 Cancelled RDW 21.9 H Cancelled Plt Count 20 L* Cancelled Seg Neutrophils % 78.1 H Cancelled Lymphocytes % 9.4 L Cancelled Monocytes % 10.7 Cancelled Eosinophils % 0.7 Cancelled Basophils % 1.1 Cancelled Absolute Neutrophils 5.3 Cancelled Absolute Lymphocytes 0.6 Cancelled Absolute Monocytes 0.7 Cancelled Absolute Eosinophils 0.0 Cancelled Absolute Basophils 0.1 Cancelled Sodium Potassium Chloride Carbon Dioxide Anion Gap BUN Creatinine Est GFR ( Amer) Est GFR (Non-Af Amer) Glucose Calcium Total Bilirubin AST ALT Alkaline Phosphatase Total Protein Albumin Impressions: Chest X-Ray 06/17/17 17:05 IMPRESSION: NO ACUTE RADIOGRAPHIC FINDING IN THE CHEST. Assessment & Plan - Diagnosis (1) Upper GI bleed Is this a current diagnosis for this admission?: Yes (2) Thrombocytopenia Is this a current diagnosis for this admission?: Yes - Plan Summary Plan Summary: Patient is status post EGD with banding of esophageal varices. Continue PPI. He is also status post 2 unit packed red blood cells with improvement in hemoglobin. We will continue to monitor. We will transfuse platelets by GI recommendation. Only 1 unit of platelets is available now, will transfuse that and follow-up CBC in a.m. and consider transfusing additional unit of platelets depending on result. We will continue to monitor in ICU for now. Will not advance diet now, will await GI input regarding that. Counseled about continued alcohol use. He is at risk for withdraws giving his significant alcohol use. I have instituted benzodiazepine protocol for DT prophylaxis. SCDs for DVT prophylaxis given GI bleed.
[2017-06-18 21:15] LABS: ABSOLUTE BASOPHILS # (AUTO) 0.1 10^3/uL (0.0-0.2); ABSOLUTE EOSINOPHILS # (AUTO) 0.1 10^3/uL (0.0-0.6); ABSOLUTE LYMPHOCYTES (AUTO) 0.9 10^3/uL (0.5-4.7); ABSOLUTE MONOCYTES (AUTO) 0.7 10^3/uL (0.1-1.4); ABSOLUTE NEUT (AUTO) 4.8 10^3/uL (1.7-8.2); BASOPHILS % (AUTO) 0.8 % (0-2); HEMOGLOBIN 9.9 g/dL (13.5-17.0); LYMPHOCYTES % (AUTO) 13.2 % (13-45); MEAN CORPUSCULAR HEMOGLOBIN 26.3 pg (27.0-33.4); MEAN CORPUSCULAR VOLUME 82 fl (80-97); MONOCYTES % (AUTO) 10.8 % (3-13); RED BLOOD COUNT 3.77 10^6/uL (4.35-5.55); RED CELL DISTRIBUTION WIDTH 22.4 % (11.5-14.0); SEGMENTED NEUTROPHILS % (AUTO) 74.2 % (42-78); TOTAL CELLS COUNTED % (AUTO) 100 %; WHITE BLOOD COUNT 6.5 10^3/uL (4.0-10.5)
[2017-06-18 21:35] LABS: PLATELET COUNT 31 10^3/uL (150-450)
[2017-06-19] MEDS: LORAZEPAM INJ 2 MG/1 ML VIAL IV SCH ×4 (02:06→23:39)
[2017-06-19 03:17] LABS: ABSOLUTE BASOPHILS # (AUTO) 0.1 10^3/uL (0.0-0.2); ABSOLUTE EOSINOPHILS # (AUTO) 0.1 10^3/uL (0.0-0.6); ABSOLUTE LYMPHOCYTES (AUTO) 0.8 10^3/uL (0.5-4.7); ABSOLUTE MONOCYTES (AUTO) 0.6 10^3/uL (0.1-1.4); ABSOLUTE NEUT (AUTO) 4.6 10^3/uL (1.7-8.2); BASOPHILS % (AUTO) 0.9 % (0-2); EOSINOPHILS % (AUTO) 1.5 % (0-6); HEMATOCRIT 28.5 % (37.9-51.0); HEMOGLOBIN 9.3 g/dL (13.5-17.0); MEAN CORPUSCULAR HEMOGLOBIN 26.8 pg (27.0-33.4); MEAN CORPUSCULAR HGB CONC 32.7 g/dL (32.0-36.0); MEAN CORPUSCULAR VOLUME 82 fl (80-97); MONOCYTES % (AUTO) 10.3 % (3-13); RED BLOOD COUNT 3.47 10^6/uL (4.35-5.55); RED CELL DISTRIBUTION WIDTH 22.1 % (11.5-14.0); SEGMENTED NEUTROPHILS % (AUTO) 74.3 % (42-78); TOTAL CELLS COUNTED % (AUTO) 100 %; WHITE BLOOD COUNT 6.1 10^3/uL (4.0-10.5)
[2017-06-19 03:30] LABS: ALANINE AMINOTRANSFERASE 57 U/L (21-72); ALBUMIN 3.4 g/dL (3.5-5.0); ALKALINE PHOSPHATASE 106 U/L (38-126); ANION GAP 14 (5-19); ASPARTATE AMINO TRANSFERASE 171 U/L (17-59); BILIRUBIN,TOTAL 3.9 mg/dL (0.2-1.3); BLOOD UREA NITROGEN 10 mg/dL (7-20); CALCIUM 8.4 mg/dL (8.4-10.2); CARBON DIOXIDE 27 mmol/L (22-30); CHLORIDE 101 mmol/L (98-107); GLUCOSE 104 mg/dL (75-110); POTASSIUM 3.6 mmol/L (3.6-5.0); SODIUM 142.4 mmol/L (137-145); TOTAL PROTEIN 6.6 g/dL (6.3-8.2)
[2017-06-19 03:38] LABS: PLATELET COUNT 31 10^3/uL (150-450)
[2017-06-19 05:41] LABS: HEPATITIS A AB IGM Negative (Negative); HEPATITIS B CORE AB IGM Negative (Negative); HEPATITS B SURFACE ANTIGEN Negative (Negative)
[2017-06-19 07:24] LABS: HEPATITIS C VIRUS ANTIBODY <0.1 s/co ratio (0.0-0.9)
[2017-06-19] MEDS: NORMAL SALINE 100 ML with PANTOPRAZOLE SODIUM 80 MG IV PRN ×4 (07:49→22:10)
[2017-06-19] MEDS: MULTIVITAMIN TABLET PO SCH (09:22)
--- NOTE | 2017-06-19 10:09 | Physician Advisory Note ---
Physician Advisor ProgressNote .: [facility], I have reviewed the medical record for this patient. Physician Advisor Statement: Please consider documenting, if you agree: 1. "Anemia of acute blood loss due to UGIBleed (Hgb started at 11.5, dropped as low as 9.0)" 2. "UGIBleed due to esophageal varices & thrombocytopenia, both due to cirrhosis" 3. "Alcoholic cirrhosis & Acute alcoholic hepatitis, w/ascites" 4. "Acute epigastric abdominal pain, likely due to " 5. "Alcohol abuse & dependence" Thanks! CK
[2017-06-19] MEDS: IPRATROPIUM/ALBUTEROL 0.5-2.5 MG/3 ML AMPUL NEB SCH ×2 (10:17→20:06)
[2017-06-19 10:48] LABS: ABSOLUTE BASOPHILS # (AUTO) 0.1 10^3/uL (0.0-0.2); ABSOLUTE EOSINOPHILS # (AUTO) 0.1 10^3/uL (0.0-0.6); ABSOLUTE LYMPHOCYTES (AUTO) 0.8 10^3/uL (0.5-4.7); ABSOLUTE MONOCYTES (AUTO) 0.7 10^3/uL (0.1-1.4); ABSOLUTE NEUT (AUTO) 4.6 10^3/uL (1.7-8.2); BASOPHILS % (AUTO) 0.9 % (0-2); EOSINOPHILS % (AUTO) 1.9 % (0-6); HEMATOCRIT 29.3 % (37.9-51.0); HEMOGLOBIN 9.3 g/dL (13.5-17.0); LYMPHOCYTES % (AUTO) 12.8 % (13-45); MEAN CORPUSCULAR HEMOGLOBIN 26.6 pg (27.0-33.4); MEAN CORPUSCULAR HGB CONC 31.8 g/dL (32.0-36.0); MEAN CORPUSCULAR VOLUME 84 fl (80-97); MONOCYTES % (AUTO) 10.8 % (3-13); RED BLOOD COUNT 3.51 10^6/uL (4.35-5.55); RED CELL DISTRIBUTION WIDTH 22.4 % (11.5-14.0); SEGMENTED NEUTROPHILS % (AUTO) 73.6 % (42-78); TOTAL CELLS COUNTED % (AUTO) 100 %; WHITE BLOOD COUNT 6.2 10^3/uL (4.0-10.5)
--- NOTE | 2017-06-19 11:09 | PDOC PROGRESS REPORT ---
Subjective Progress Note for:: 06/19/17 Subjective:: Feeling better, normal hematemesis since endoscopy. He is hungry. Still with abdominal pain, epigastric, but better. Denies chest pain or shortness of breath, no palpitations. No fever or chills. Reason For Visit: UPPER GI BLEED, HEPATIC CIRRHOSIS Physical Exam Vital Signs: Temp Pulse Resp BP Pulse Ox 98.2 F 97 19 120/82 97 06/19/17 08:00 06/19/17 08:00 06/19/17 08:00 06/19/17 08:00 06/19/17 08:00 Intake & Output 06/18/17 06/19/17 06/20/17 06:59 06:59 06:59 Intake Total 595 984 1907 Output Total 250 1230 Balance 340 -1027 1689 Weight 85.8 kg 85 kg GEN: NAD, well-deloped, well-nourished NECK supple, no JVD CV: RRR, NL S1S2 ABDOMEN Soft, mild to moderate epigastric tenderness, no rebound or guarding, + BS EXTERMITIES: No e/c/c NEURO: Alert, oriented 3 Results Laboratory Results: 06/19/17 03:02 06/19/17 03:02 06/18/17 06/18/17 06/18/17 09:36 15:30 17:21 WBC 6.7 Cancelled 7.2 RBC 3.53 L Cancelled 3.35 L Hgb 9.4 L Cancelled 9.0 L Hct 28.8 L Cancelled 27.7 L MCV 82 Cancelled 83 MCH 26.8 L Cancelled 27.0 MCHC 32.8 Cancelled 32.7 RDW 21.9 H Cancelled 22.3 H Plt Count 20 L* Cancelled 33 L Seg Neutrophils % 78.1 H Cancelled 78.1 H Lymphocytes % 9.4 L Cancelled 10.3 L Monocytes % 10.7 Cancelled 9.5 Eosinophils % 0.7 Cancelled 1.1 Basophils % 1.1 Cancelled 1.0 Absolute Neutrophils 5.3 Cancelled 5.6 Absolute Lymphocytes 0.6 Cancelled 0.7 Absolute Monocytes 0.7 Cancelled 0.7 Absolute Eosinophils 0.0 Cancelled 0.1 Absolute Basophils 0.1 Cancelled 0.1 Sodium Potassium Chloride Carbon Dioxide Anion Gap BUN Creatinine Est GFR ( Amer) Est GFR (Non-Af Amer) Glucose Calcium Total Bilirubin AST ALT Alkaline Phosphatase Total Protein Albumin 06/18/17 06/19/17 06/19/17 21:04 03:02 03:02 WBC 6.5 6.1 RBC 3.77 L 3.47 L Hgb 9.9 L 9.3 L Hct 31.0 L 28.5 L MCV 82 82 MCH 26.3 L 26.8 L MCHC 32.0 32.7 RDW 22.4 H 22.1 H Plt Count 31 L 31 L Seg Neutrophils % 74.2 74.3 Lymphocytes % 13.2 13.0 Monocytes % 10.8 10.3 Eosinophils % 1.0 1.5 Basophils % 0.8 0.9 Absolute Neutrophils 4.8 4.6 Absolute Lymphocytes 0.9 0.8 Absolute Monocytes 0.7 0.6 Absolute Eosinophils 0.1 0.1 Absolute Basophils 0.1 0.1 Sodium 142.4 Potassium 3.6 Chloride 101 Carbon Dioxide 27 Anion Gap 14 BUN 10 Creatinine 0.58 Est GFR ( Amer) > 60 Est GFR (Non-Af Amer) > 60 Glucose 104 Calcium 8.4 Total Bilirubin 3.9 H AST 171 H ALT 57 Alkaline Phosphatase 106 Total Protein 6.6 Albumin 3.4 L Impressions: Chest X-Ray 06/17/17 17:05 IMPRESSION: NO ACUTE RADIOGRAPHIC FINDING IN THE CHEST. Assessment & Plan - Diagnosis (1) Upper GI bleed Is this a current diagnosis for this admission?: Yes Plan: S/p 2 units prbc since admission and H&H holding at this time. We will continue to monitor in ICU for now. Will advance diet to clear liquid, and then full liquid if tolerated. Monitor for recurrent bleed. Continue IV Protonix for now. (2) Thrombocytopenia Is this a current diagnosis for this admission?: Yes Plan: Status post 1 unit platelets yesterday with improvement in platelets are now stable at 31. We will continue to follow and transfuse platelets as needed or if recurrent bleeding. (4) Varices of esophagus determined by endoscopy Is this a current diagnosis for this admission?: Yes Plan: S/p octreotide. S/p EGD and variceal bleeding. Currently with no bleeding. Will comntinue to monitor. (5) Anemia associated with acute blood loss Is this a current diagnosis for this admission?: Yes Plan: Continue to monitor cbc. Transfuse prbc as needed. (6) Alcoholic cirrhosis of liver without ascites Is this a current diagnosis for this admission?: Yes Plan: Continue to monitor (7) Acute alcoholic hepatitis Is this a current diagnosis for this admission?: Yes Plan: Continue to monitor LFTs. FFP if evidence of recurrence bleeding or worsening PT/INR. (8) Alcohol abuse with physiological dependence Is this a current diagnosis for this admission?: Yes Plan: Counseled about continued alcohol use. He continues to be at risk for DTs given his significant alcohol use. Continue benzodiazepine protocol for DT prophylaxis. - Plan Summary Plan Summary: SCDs for DVT prophylaxis given GI bleed.
[2017-06-19] MEDS: NORMAL SALINE 500 ML with OCTREOTIDE ACETATE 500 MCG IV PRN ×4 (11:11→22:10)
[2017-06-19 11:28] LABS: PLATELET COUNT 31 10^3/uL (150-450)
[2017-06-19 11:29] LABS: ANISOCYTOSIS 3+; HYPOCHROMASIA 2+; OVALOCYTES 1+; PLATELET COMMENT DECREASED; PLATELET LARGE PRESENT; POIKILOCYTOSIS 1+; POLYCHROMASIA SLIGHT; TOXIC GRANULATION SLIGHT
[2017-06-19 12:17] LABS: ALANINE AMINOTRANSFERASE 54 U/L (21-72); ALBUMIN 3.7 g/dL (3.5-5.0); ALKALINE PHOSPHATASE 120 U/L (38-126); ANION GAP 16 (5-19); ASPARTATE AMINO TRANSFERASE 157 U/L (17-59); BILIRUBIN,DIRECT 2.3 mg/dL (0.0-0.4); BILIRUBIN,TOTAL 4.1 mg/dL (0.2-1.3); BLOOD UREA NITROGEN 9 mg/dL (7-20); CALCIUM 8.5 mg/dL (8.4-10.2); CARBON DIOXIDE 25 mmol/L (22-30); CHLORIDE 102 mmol/L (98-107); GLUCOSE 116 mg/dL (75-110); POTASSIUM 3.5 mmol/L (3.6-5.0); SODIUM 142.9 mmol/L (137-145); TOTAL PROTEIN 6.6 g/dL (6.3-8.2)
[2017-06-19] MEDS: NICOTINE 21 MG/24 HR PATCH.TD24 TD SCH (12:37)
[2017-06-19] MEDS: MAGNESIUM SULFATE 1 GM/D5W 100 ML IV SCH ×2 (13:02→13:49)
--- NOTE | 2017-06-19 13:56 | PDOC PROGRESS REPORT ---
Subjective Progress Note for:: 06/19/17 Subjective:: no further bleeding since admission will need to keep on PPI once converted to oral medications can stop Octretide patient had banding procedure done I have spoken to patient , once he starts oral feeding , he will experience some dysphagia eventually the varices that were banded with drop off Reason For Visit: UPPER GI BLEED, HEPATIC CIRRHOSIS Physical Exam Vital Signs: Temp Pulse Resp BP Pulse Ox 97.8 F 86 21 H 107/67 95 06/19/17 10:00 06/19/17 10:00 06/19/17 11:15 06/19/17 11:15 06/19/17 11:15 Intake & Output 06/18/17 06/19/17 06/20/17 06:59 06:59 06:59 Intake Total 375 996 9881 Output Total 250 1230 Balance 340 -1027 1689 Weight 85.8 kg 85 kg General appearance: PRESENT: no acute distress, well-developed, well-nourished Head exam: PRESENT: atraumatic, normocephalic Eye exam: PRESENT: EOMI, PERRLA, scleral icterus. ABSENT: nystagmus, periorbital swelling Mouth exam: PRESENT: moist, neck supple Throat exam: ABSENT: tonsillar exudate, tonsillogmegaly Neck exam: ABSENT: meningismus, tenderness, thyromegaly Respiratory exam: PRESENT: symmetrical, unlabored. ABSENT: tachypnea, wheezes Cardiovascular exam: PRESENT: RRR, +S1, +S2 GI/Abdominal exam: PRESENT: soft. ABSENT: Li's sign, rebound, rigid, tenderness Extremities exam: ABSENT: joint swelling Neurological exam: PRESENT: oriented to time, oriented to situation, CN II-XII grossly intact Skin exam: PRESENT: normal color. ABSENT: mottled, pallor, urticaria, vesicles Results Laboratory Results: 06/19/17 10:35 06/19/17 11:49 06/18/17 06/18/17 06/18/17 15:30 17:21 21:04 WBC Cancelled 7.2 6.5 RBC Cancelled 3.35 L 3.77 L Hgb Cancelled 9.0 L 9.9 L Hct Cancelled 27.7 L 31.0 L MCV Cancelled 83 82 MCH Cancelled 27.0 26.3 L MCHC Cancelled 32.7 32.0 RDW Cancelled 22.3 H 22.4 H Plt Count Cancelled 33 L 31 L Seg Neutrophils % Cancelled 78.1 H 74.2 Lymphocytes % Cancelled 10.3 L 13.2 Monocytes % Cancelled 9.5 10.8 Eosinophils % Cancelled 1.1 1.0 Basophils % Cancelled 1.0 0.8 Absolute Neutrophils Cancelled 5.6 4.8 Absolute Lymphocytes Cancelled 0.7 0.9 Absolute Monocytes Cancelled 0.7 0.7 Absolute Eosinophils Cancelled 0.1 0.1 Absolute Basophils Cancelled 0.1 0.1 Sodium Potassium Chloride Carbon Dioxide Anion Gap BUN Creatinine Est GFR ( Amer) Est GFR (Non-Af Amer) Glucose Calcium Magnesium Total Bilirubin AST ALT Alkaline Phosphatase Total Protein Albumin 06/19/17 06/19/17 06/19/17 03:02 03:02 10:35 WBC 6.1 6.2 RBC 3.47 L 3.51 L Hgb 9.3 L 9.3 L Hct 28.5 L 29.3 L MCV 82 84 MCH 26.8 L 26.6 L MCHC 32.7 31.8 L RDW 22.1 H 22.4 H Plt Count 31 L 31 L Seg Neutrophils % 74.3 73.6 Lymphocytes % 13.0 12.8 L Monocytes % 10.3 10.8 Eosinophils % 1.5 1.9 Basophils % 0.9 0.9 Absolute Neutrophils 4.6 4.6 Absolute Lymphocytes 0.8 0.8 Absolute Monocytes 0.6 0.7 Absolute Eosinophils 0.1 0.1 Absolute Basophils 0.1 0.1 Sodium 142.4 Potassium 3.6 Chloride 101 Carbon Dioxide 27 Anion Gap 14 BUN 10 Creatinine 0.58 Est GFR ( Amer) > 60 Est GFR (Non-Af Amer) > 60 Glucose 104 Calcium 8.4 Magnesium Total Bilirubin 3.9 H AST 171 H ALT 57 Alkaline Phosphatase 106 Total Protein 6.6 Albumin 3.4 L 06/19/17 11:49 WBC RBC Hgb Hct MCV MCH MCHC RDW Plt Count Seg Neutrophils % Lymphocytes % Monocytes % Eosinophils % Basophils % Absolute Neutrophils Absolute Lymphocytes Absolute Monocytes Absolute Eosinophils Absolute Basophils Sodium 142.9 Potassium 3.5 L Chloride 102 Carbon Dioxide 25 Anion Gap 16 BUN 9 Creatinine 0.58 Est GFR ( Amer) > 60 Est GFR (Non-Af Amer) > 60 Glucose 116 H Calcium 8.5 Magnesium 1.3 L Total Bilirubin 4.1 H AST 157 H ALT 54 Alkaline Phosphatase 120 Total Protein 6.6 Albumin 3.7 Impressions: Chest X-Ray 06/17/17 17:05 IMPRESSION: NO ACUTE RADIOGRAPHIC FINDING IN THE CHEST. Assessment & Plan - Diagnosis (1) Abnormal LFTs Plan: hepatitis panel is negative some component of alcoholic hepatitis seems to have plateaued continue to monitor (2) Ascites Qualifiers: Ascites type: other type Qualified Code(s): R18.8 - Other ascites (3) Liver failure Qualifiers: Liver failure chronicity: chronic Hepatic coma status: without hepatic coma Qualified Code(s): K72.10 - Chronic hepatic failure without coma Is this a current diagnosis for this admission?: Yes (4) Upper GI bleed Is this a current diagnosis for this admission?: Yes Plan: stable, due to variceal that was banded as noted once the patient starts taking oral intake , will have dysphagia this should be resolved can follow up as outpatient continue PPI, D/c Octreotide (5) DTs (delirium tremens) Is this a current diagnosis for this admission?: Yes (6) Thrombocytopenia Is this a current diagnosis for this admission?: Yes - Time Time Spent with patient: 15-24 minutes
[2017-06-19 15:12] LABS: ABSOLUTE BASOPHILS # (AUTO) 0.1 10^3/uL (0.0-0.2); ABSOLUTE EOSINOPHILS # (AUTO) 0.1 10^3/uL (0.0-0.6); ABSOLUTE LYMPHOCYTES (AUTO) 0.6 10^3/uL (0.5-4.7); ABSOLUTE MONOCYTES (AUTO) 0.7 10^3/uL (0.1-1.4); ABSOLUTE NEUT (AUTO) 4.4 10^3/uL (1.7-8.2); BASOPHILS % (AUTO) 1.3 % (0-2); HEMATOCRIT 29.1 % (37.9-51.0); HEMOGLOBIN 9.4 g/dL (13.5-17.0); LYMPHOCYTES % (AUTO) 10.8 % (13-45); MEAN CORPUSCULAR HEMOGLOBIN 26.8 pg (27.0-33.4); MEAN CORPUSCULAR HGB CONC 32.4 g/dL (32.0-36.0); MEAN CORPUSCULAR VOLUME 83 fl (80-97); MONOCYTES % (AUTO) 11.5 % (3-13); RED BLOOD COUNT 3.52 10^6/uL (4.35-5.55); RED CELL DISTRIBUTION WIDTH 22.5 % (11.5-14.0); SEGMENTED NEUTROPHILS % (AUTO) 74.4 % (42-78); TOTAL CELLS COUNTED % (AUTO) 100 %
[2017-06-19 15:52] LABS: PLATELET COUNT 30 10^3/uL (150-450)
[2017-06-19] MEDS: THIAMINE HCL 100 MG, FOLIC ACID 1 MG in NORMAL SALINE 250 ML IV SCH (23:40)
[2017-06-20 04:03] LABS: ABSOLUTE BASOPHILS # (AUTO) 0.1 10^3/uL (0.0-0.2); ABSOLUTE EOSINOPHILS # (AUTO) 0.1 10^3/uL (0.0-0.6); ABSOLUTE MONOCYTES (AUTO) 0.8 10^3/uL (0.1-1.4); ABSOLUTE NEUT (AUTO) 5.1 10^3/uL (1.7-8.2); BASOPHILS % (AUTO) 1.1 % (0-2); HEMATOCRIT 29.5 % (37.9-51.0); HEMOGLOBIN 9.6 g/dL (13.5-17.0); LYMPHOCYTES % (AUTO) 14.4 % (13-45); MEAN CORPUSCULAR HEMOGLOBIN 26.9 pg (27.0-33.4); MEAN CORPUSCULAR HGB CONC 32.7 g/dL (32.0-36.0); MEAN CORPUSCULAR VOLUME 82 fl (80-97); MONOCYTES % (AUTO) 11.2 % (3-13); PLATELET COUNT 31 10^3/uL (150-450); RED BLOOD COUNT 3.58 10^6/uL (4.35-5.55); RED CELL DISTRIBUTION WIDTH 22.3 % (11.5-14.0); SEGMENTED NEUTROPHILS % (AUTO) 71.3 % (42-78); TOTAL CELLS COUNTED % (AUTO) 100 %; WHITE BLOOD COUNT 7.1 10^3/uL (4.0-10.5)
[2017-06-20 04:07] LABS: INTERNATIONAL RATION (INR) 1.44; PROTHROMBIN TIME 18.4 SEC (11.4-15.4)
[2017-06-20 04:18] LABS: ANION GAP 12 (5-19); BLOOD UREA NITROGEN 5 mg/dL (7-20); CALCIUM 8.9 mg/dL (8.4-10.2); CARBON DIOXIDE 26 mmol/L (22-30); CHLORIDE 101 mmol/L (98-107); GLUCOSE 125 mg/dL (75-110); POTASSIUM 3.2 mmol/L (3.6-5.0)
[2017-06-20] MEDS: NORMAL SALINE 100 ML with PANTOPRAZOLE SODIUM 80 MG IV PRN ×6 (04:38→22:47)
[2017-06-20] MEDS: POTASSI CL 20 MEQ/50 ML RIDER 20 MEQ/50 ML RTUPB IV SCH ×2 (06:54→08:26)
[2017-06-20] MEDS: MAGNESIUM SULFATE/D5W 1 GM/100 ML RTUPB IV SCH ×2 (06:55→08:26)
[2017-06-20] MEDS: IPRATROPIUM/ALBUTEROL 0.5-2.5 MG/3 ML AMPUL NEB SCH ×2 (08:22→20:51)
[2017-06-20] MEDS: NORMAL SALINE 500 ML with OCTREOTIDE ACETATE 500 MCG IV PRN ×4 (08:25→18:52)
[2017-06-20] MEDS: MULTIVITAMIN TABLET PO SCH (09:01)
[2017-06-20] MEDS: LORAZEPAM INJ 2 MG/1 ML VIAL IV SCH ×3 (09:01→20:33)
[2017-06-20] MEDS: NICOTINE 21 MG/24 HR PATCH.TD24 TD SCH (11:41)
[2017-06-20] MEDS ORDERED: MAGNESIUM SULFATE INJ 8 MEQ/2 ML IV ONE (15:30)
--- NOTE | 2017-06-20 15:38 | PDOC PROGRESS REPORT ---
Subjective Progress Note for:: 06/20/17 Subjective:: No recurrent upper GI bleeds since admission. More sedated today, apparently from Ativan for DT prophylaxis. He is however arousable. Tolerating liquid diets. Reason For Visit: UPPER GI BLEED, HEPATIC CIRRHOSIS Physical Exam Vital Signs: Temp Pulse Resp BP Pulse Ox 98.8 F 94 17 105/71 99 06/20/17 12:00 06/20/17 12:00 06/20/17 14:20 06/20/17 14:20 06/20/17 14:20 Intake & Output 06/19/17 06/20/17 06/21/17 06:59 06:59 06:59 Intake Total 203 4599 Output Total 1230 510 835 Balance -1027 4089 -835 Weight 85 kg 87.1 kg GEN: NAD, well-deloped male NECK supple, no JVD CV: RRR, NL S1S2 ABDOMEN Soft, mild to moderate epigastric tenderness, no rebound or guarding, + BS EXTERMITIES: No e/c/c NEURO: Lethargic, but arousable easily Results Laboratory Results: 06/20/17 03:48 06/20/17 03:48 06/19/17 06/20/17 06/20/17 14:53 03:48 03:48 WBC 6.0 7.1 RBC 3.52 L 3.58 L Hgb 9.4 L 9.6 L Hct 29.1 L 29.5 L MCV 83 82 MCH 26.8 L 26.9 L MCHC 32.4 32.7 RDW 22.5 H 22.3 H Plt Count 30 L* 31 L Seg Neutrophils % 74.4 71.3 Lymphocytes % 10.8 L 14.4 Monocytes % 11.5 11.2 Eosinophils % 2.0 2.0 Basophils % 1.3 1.1 Absolute Neutrophils 4.4 5.1 Absolute Lymphocytes 0.6 1.0 Absolute Monocytes 0.7 0.8 Absolute Eosinophils 0.1 0.1 Absolute Basophils 0.1 0.1 Sodium 139.0 Potassium 3.2 L Chloride 101 Carbon Dioxide 26 Anion Gap 12 BUN 5 L Creatinine 0.53 Est GFR ( Amer) > 60 Est GFR (Non-Af Amer) > 60 Glucose 125 H Calcium 8.9 Magnesium 1.3 L Impressions: Chest X-Ray 06/17/17 17:05 IMPRESSION: NO ACUTE RADIOGRAPHIC FINDING IN THE CHEST. Assessment & Plan - Diagnosis (1) Upper GI bleed Is this a current diagnosis for this admission?: Yes Plan: S/p 2 units prbc since admission and H&H holding at this time. We will continue to monitor in ICU for now. Will advance diet as tolerated. Continue IV Protonix for now. Will consider switching to p.o. soon. (2) Thrombocytopenia Is this a current diagnosis for this admission?: Yes Plan: Status post 1 unit platelets 06/18/17 with improvement in platelets are now stable at 31. We will continue to follow and transfuse platelets as needed or if recurrent bleeding. (4) Varices of esophagus determined by endoscopy Is this a current diagnosis for this admission?: Yes Plan: S/p octreotide. S/p EGD and variceal banding. Currently with no bleeding. Will comntinue to monitor. (5) Anemia associated with acute blood loss Is this a current diagnosis for this admission?: Yes Plan: Continue to monitor cbc. Transfuse prbc as needed. (6) Alcoholic cirrhosis of liver without ascites Plan: Continue to monitor (7) Acute alcoholic hepatitis Is this a current diagnosis for this admission?: Yes Plan: Continue to monitor LFTs. FFP if evidence of recurrence bleeding or worsening PT/INR. (8) Alcohol abuse with physiological dependence Is this a current diagnosis for this admission?: Yes Plan: Continue benzodiazepine protocol with taper for DT prophylaxis. Hold doses for sedation. (9) Hypokalemia Is this a current diagnosis for this admission?: Yes Plan: We will replete as needed and follow-up levels. (10) Hypomagnesemia Is this a current diagnosis for this admission?: Yes Plan: We will replete as needed and follow-up levels.
[2017-06-20] MEDS ORDERED: POTASSIUM CHLORIDE 10 MEQ TABLET.SA PO ONE (16:00)
[2017-06-20] MEDS ORDERED: MAGNESIUM OXIDE 400 MG TABLET PO ONE (16:00)
[2017-06-20] MEDS ORDERED: MAGNESIUM SULFATE/D5W 1 GM/100 ML RTUPB IV ONE ×3 (16:30→19:30)
[2017-06-20 17:12] LABS: ANION GAP 9 (5-19); BLOOD UREA NITROGEN 5 mg/dL (7-20); CALCIUM 8.4 mg/dL (8.4-10.2); CARBON DIOXIDE 27 mmol/L (22-30); CHLORIDE 102 mmol/L (98-107); GLUCOSE 112 mg/dL (75-110); POTASSIUM 3.4 mmol/L (3.6-5.0); SODIUM 137.8 mmol/L (137-145)
[2017-06-20] MEDS ORDERED: MAGNESIUM SULFATE 1 GM in D5W 100 ML IV ONE (18:45)
[2017-06-20] MEDS ORDERED: POTASSI CL 20 MEQ/50 ML RIDER 20 MEQ/50 ML RTUPB IV ONE (18:48)
[2017-06-20] MEDS: LORAZEPAM INJ 2 MG/1 ML VIAL IV PRN (18:54)
[2017-06-20] MEDS: POTASSIUM CHLORIDE 20 MEQ/50 ML RTU IV SCH ×2 (20:33→22:48)
[2017-06-20] MEDS: POTASSIUM CHLORIDE 10 MEQ TABLET.SA PO SCH (22:46)
[2017-06-20] MEDS: THIAMINE HCL 100 MG, FOLIC ACID 1 MG in NORMAL SALINE 250 ML IV SCH (22:47)
[2017-06-21] MEDS: LORAZEPAM INJ 2 MG/1 ML VIAL IV SCH ×4 (03:00→23:18)
[2017-06-21 04:26] LABS: ABSOLUTE BASOPHILS # (AUTO) 0.1 10^3/uL (0.0-0.2); ABSOLUTE EOSINOPHILS # (AUTO) 0.2 10^3/uL (0.0-0.6); ABSOLUTE LYMPHOCYTES (AUTO) 1.1 10^3/uL (0.5-4.7); ABSOLUTE MONOCYTES (AUTO) 0.8 10^3/uL (0.1-1.4); BASOPHILS % (AUTO) 0.8 % (0-2); EOSINOPHILS % (AUTO) 3.2 % (0-6); HEMATOCRIT 30.5 % (37.9-51.0); HEMOGLOBIN 9.9 g/dL (13.5-17.0); LYMPHOCYTES % (AUTO) 15.6 % (13-45); MEAN CORPUSCULAR HEMOGLOBIN 26.9 pg (27.0-33.4); MEAN CORPUSCULAR HGB CONC 32.3 g/dL (32.0-36.0); MEAN CORPUSCULAR VOLUME 83 fl (80-97); MONOCYTES % (AUTO) 11.2 % (3-13); RED BLOOD COUNT 3.66 10^6/uL (4.35-5.55); SEGMENTED NEUTROPHILS % (AUTO) 69.2 % (42-78); TOTAL CELLS COUNTED % (AUTO) 100 %; WHITE BLOOD COUNT 7.2 10^3/uL (4.0-10.5)
[2017-06-21] MEDS: LORAZEPAM INJ 2 MG/1 ML VIAL IV PRN (04:32)
[2017-06-21 04:47] LABS: ALANINE AMINOTRANSFERASE 54 U/L (21-72); ALBUMIN 3.2 g/dL (3.5-5.0); ALKALINE PHOSPHATASE 108 U/L (38-126); ANION GAP 9 (5-19); ASPARTATE AMINO TRANSFERASE 110 U/L (17-59); BILIRUBIN,DIRECT 1.9 mg/dL (0.0-0.4); BILIRUBIN,TOTAL 2.9 mg/dL (0.2-1.3); BLOOD UREA NITROGEN 3 mg/dL (7-20); CALCIUM 8.6 mg/dL (8.4-10.2); CARBON DIOXIDE 25 mmol/L (22-30); CHLORIDE 106 mmol/L (98-107); GLUCOSE 119 mg/dL (75-110); POTASSIUM 3.9 mmol/L (3.6-5.0); SODIUM 139.8 mmol/L (137-145); TOTAL PROTEIN 6.4 g/dL (6.3-8.2)
[2017-06-21 04:50] LABS: PLATELET COUNT 38 10^3/uL (150-450)
[2017-06-21] MEDS: NORMAL SALINE 500 ML with OCTREOTIDE ACETATE 500 MCG IV PRN ×2 (08:32)
[2017-06-21] MEDS: IPRATROPIUM/ALBUTEROL 0.5-2.5 MG/3 ML AMPUL NEB SCH ×2 (10:35→21:16)
[2017-06-21] MEDS: POTASSIUM CHLORIDE 10 MEQ TABLET.SA PO SCH ×2 (11:03→22:16)
[2017-06-21] MEDS: MULTIVITAMIN TABLET PO SCH (11:03)
[2017-06-21] MEDS: MAGNESIUM OXIDE 400 MG TABLET PO SCH ×2 (11:04→18:00)
[2017-06-21] MEDS: NICOTINE 21 MG/24 HR PATCH.TD24 TD SCH (11:04)
--- NOTE | 2017-06-21 17:39 | PDOC PROGRESS REPORT ---
Subjective Progress Note for:: 06/21/17 Subjective:: No recurrent upper GI bleeds since admission. More awake today. Tolerating liquid diets. Denies abdominal pain, no nausea or vomiting, no fever or chills. Reason For Visit: UPPER GI BLEED, HEPATIC CIRRHOSIS Physical Exam Vital Signs: Temp Pulse Resp BP Pulse Ox 98.3 F 105 H 19 134/88 H 95 06/21/17 12:00 06/21/17 12:00 06/21/17 16:36 06/21/17 16:36 06/21/17 16:36 Intake & Output 06/20/17 06/21/17 06/22/17 06:59 06:59 06:59 Intake Total 4599 2028 400 Output Total 510 3135 600 Balance 4089 -1107 -200 Weight 87.1 kg GEN: NAD, well-developed male NECK supple, no JVD CV: RRR, NL S1S2 ABDOMEN Soft, nontender, no rebound or guarding, +BS EXTERMITIES: No e/c/c NEURO: Alert, oriented 3, no focal weakness Results Laboratory Results: 06/21/17 03:53 06/21/17 03:53 06/21/17 06/21/17 06/21/17 03:53 03:53 11:06 WBC 7.2 RBC 3.66 L Hgb 9.9 L Hct 30.5 L MCV 83 MCH 26.9 L MCHC 32.3 RDW 23.0 H Plt Count 38 L Seg Neutrophils % 69.2 Lymphocytes % 15.6 Monocytes % 11.2 Eosinophils % 3.2 Basophils % 0.8 Absolute Neutrophils 5.0 Absolute Lymphocytes 1.1 Absolute Monocytes 0.8 Absolute Eosinophils 0.2 Absolute Basophils 0.1 Sodium 139.8 Potassium 3.9 Chloride 106 Carbon Dioxide 25 Anion Gap 9 BUN 3 L Creatinine 0.52 Est GFR ( Amer) > 60 Est GFR (Non-Af Amer) > 60 Glucose 119 H Calcium 8.6 Magnesium 1.5 L Total Bilirubin 2.9 H AST 110 H ALT 54 Alkaline Phosphatase 108 Total Protein 6.4 Albumin 3.2 L Impressions: Chest X-Ray 06/17/17 17:05 IMPRESSION: NO ACUTE RADIOGRAPHIC FINDING IN THE CHEST. Assessment & Plan - Diagnosis (1) Upper GI bleed Is this a current diagnosis for this admission?: Yes Plan: S/p 2 units prbc since admission and H&H holding at this time. We will continue to monitor in ICU for now. Will advance diet to regular. Downgrade and transfer to [facility] Continue IV Protonix for now. Will consider switching to p.o.if tolerating regular diet. (2) Thrombocytopenia Is this a current diagnosis for this admission?: Yes Plan: Status post 1 unit platelets 06/18/17 with improvement in platelets are now stable at 30s. We will continue to follow and transfuse platelets as needed or if recurrent bleeding. (4) Varices of esophagus determined by endoscopy Is this a current diagnosis for this admission?: Yes Plan: S/p octreotide. S/p EGD and variceal banding. Currently with no bleeding. Will comntinue to monitor. (5) Anemia associated with acute blood loss Is this a current diagnosis for this admission?: Yes Plan: Continue to monitor cbc. Transfuse prbc as needed. (6) Alcoholic cirrhosis of liver without ascites Is this a current diagnosis for this admission?: Yes Plan: Continue to monitor (7) Acute alcoholic hepatitis Is this a current diagnosis for this admission?: Yes Plan: Continue to monitor LFTs. FFP if evidence of recurrence bleeding or worsening PT/INR. (8) Alcohol abuse with physiological dependence Is this a current diagnosis for this admission?: Yes Plan: Continue benzodiazepine protocol with taper for DT prophylaxis. Hold doses for sedation. (9) Hypokalemia Is this a current diagnosis for this admission?: Yes Plan: We will replete as needed and follow-up levels. (10) Hypomagnesemia Is this a current diagnosis for this admission?: Yes Plan: We will replete as needed and follow-up levels.
[2017-06-21] MEDS: THIAMINE HCL 100 MG, FOLIC ACID 1 MG in NORMAL SALINE 250 ML IV SCH (22:16)
[2017-06-22 06:08] LABS: ABSOLUTE BASOPHILS # (AUTO) 0.1 10^3/uL (0.0-0.2); ABSOLUTE EOSINOPHILS # (AUTO) 0.2 10^3/uL (0.0-0.6); ABSOLUTE LYMPHOCYTES (AUTO) 0.9 10^3/uL (0.5-4.7); ABSOLUTE MONOCYTES (AUTO) 0.8 10^3/uL (0.1-1.4); ABSOLUTE NEUT (AUTO) 4.5 10^3/uL (1.7-8.2); BASOPHILS % (AUTO) 1.1 % (0-2); EOSINOPHILS % (AUTO) 2.7 % (0-6); HEMATOCRIT 31.4 % (37.9-51.0); LYMPHOCYTES % (AUTO) 14.4 % (13-45); MEAN CORPUSCULAR HEMOGLOBIN 27.1 pg (27.0-33.4); MEAN CORPUSCULAR HGB CONC 31.9 g/dL (32.0-36.0); MEAN CORPUSCULAR VOLUME 85 fl (80-97); MONOCYTES % (AUTO) 12.6 % (3-13); RED CELL DISTRIBUTION WIDTH 23.1 % (11.5-14.0); SEGMENTED NEUTROPHILS % (AUTO) 69.2 % (42-78); TOTAL CELLS COUNTED % (AUTO) 100 %; WHITE BLOOD COUNT 6.6 10^3/uL (4.0-10.5)
[2017-06-22] MEDS: LORAZEPAM INJ 2 MG/1 ML VIAL IV PRN (06:24)
[2017-06-22 06:33] LABS: ANION GAP 11 (5-19); BLOOD UREA NITROGEN 4 mg/dL (7-20); CARBON DIOXIDE 23 mmol/L (22-30); CHLORIDE 104 mmol/L (98-107); GLUCOSE 93 mg/dL (75-110); POTASSIUM 3.9 mmol/L (3.6-5.0); SODIUM 137.8 mmol/L (137-145)
[2017-06-22 06:36] LABS: PLATELET COUNT 56 10^3/uL (150-450)
[2017-06-22] MEDS: IPRATROPIUM/ALBUTEROL 0.5-2.5 MG/3 ML AMPUL NEB SCH ×2 (08:58→19:52)
[2017-06-22] MEDS: MAGNESIUM OXIDE 400 MG TABLET PO SCH ×2 (09:27→17:25)
[2017-06-22] MEDS: MULTIVITAMIN TABLET PO SCH (09:27)
[2017-06-22] MEDS: LORAZEPAM INJ 2 MG/1 ML VIAL IV SCH (09:28)
[2017-06-22] MEDS: POTASSIUM CHLORIDE 10 MEQ TABLET.SA PO SCH ×2 (09:28→21:39)
--- NOTE | 2017-06-22 15:52 | PDOC PROGRESS REPORT ---
Subjective Progress Note for:: 06/22/17 Subjective:: Transferred out of ICU yesterday. Report is doing better. Tolerating regular diet. No recurrent upper GI bleeds since admission. Denies abdominal pain, no nausea or vomiting, no fever or chills. Reason For Visit: UPPER GI BLEED, HEPATIC CIRRHOSIS Physical Exam Vital Signs: Temp Pulse Resp BP Pulse Ox 98.4 F 102 H 16 123/84 96 06/22/17 12:00 06/22/17 14:00 06/22/17 12:00 06/22/17 12:00 06/22/17 12:00 Intake & Output 06/21/17 06/22/17 06/23/17 06:59 06:59 06:59 Intake Total 2027 1139 Output Total 3135 750 Balance -1107 389 Weight 87.1 kg GEN: NAD, well-developed male NECK supple, no JVD CV: RRR, NL S1S2 ABDOMEN Soft, nontender, no rebound or guarding, +BS EXTERMITIES: No e/c/c NEURO: Alert, oriented 3, no focal weakness Results Laboratory Results: 06/22/17 03:59 06/22/17 03:59 06/21/17 06/22/17 06/22/17 18:00 03:59 03:59 WBC 6.6 RBC 3.70 L Hgb 10.0 L Hct 31.4 L MCV 85 MCH 27.1 MCHC 31.9 L RDW 23.1 H Plt Count 56 L Seg Neutrophils % 69.2 Lymphocytes % 14.4 Monocytes % 12.6 Eosinophils % 2.7 Basophils % 1.1 Absolute Neutrophils 4.5 Absolute Lymphocytes 0.9 Absolute Monocytes 0.8 Absolute Eosinophils 0.2 Absolute Basophils 0.1 Sodium 137.8 Potassium 3.9 Chloride 104 Carbon Dioxide 23 Anion Gap 11 BUN 4 L Creatinine 0.56 Est GFR ( Amer) > 60 Est GFR (Non-Af Amer) > 60 Glucose 93 Calcium 9.0 Magnesium 1.5 L Impressions: Chest X-Ray 06/17/17 17:05 IMPRESSION: NO ACUTE RADIOGRAPHIC FINDING IN THE CHEST. Assessment & Plan - Diagnosis (1) Upper GI bleed Is this a current diagnosis for this admission?: Yes Plan: S/p 2 units prbc by admission and H&H remains stable. Continue regular diet. We will change Protonix to to p.o. as tolerating regular diet. (2) Thrombocytopenia Is this a current diagnosis for this admission?: Yes Plan: Status post 1 unit platelets 06/18/17 with improvement in platelets are now stable and even improving nicely. We will continue to follow and transfuse platelets as needed or if recurrent bleeding. (3) Cirrhosis of liver Is this a current diagnosis for this admission?: Yes (4) Varices of esophagus determined by endoscopy Is this a current diagnosis for this admission?: Yes Plan: S/p octreotide. S/p EGD and variceal banding 06/17/17. Currently with no bleeding. Will comntinue to monitor. (5) Anemia associated with acute blood loss Is this a current diagnosis for this admission?: Yes Plan: Continue to monitor cbc. Transfuse prbc as needed. (6) Alcoholic cirrhosis of liver without ascites Is this a current diagnosis for this admission?: Yes Plan: Continue to monitor (7) Acute alcoholic hepatitis Is this a current diagnosis for this admission?: Yes Plan: Continue to monitor LFTs. FFP if evidence of recurrence bleeding or worsening PT/INR. (8) Alcohol abuse with physiological dependence Is this a current diagnosis for this admission?: Yes Plan: Continue benzodiazepine protocol with taper for DT prophylaxis. Hold doses for sedation. (9) Hypokalemia Is this a current diagnosis for this admission?: Yes Plan: We will replete as needed and follow-up levels. (10) Hypomagnesemia Is this a current diagnosis for this admission?: Yes Plan: We will replete as needed and follow-up levels.
[2017-06-22] MEDS: NICOTINE 21 MG/24 HR PATCH.TD24 TD SCH (17:25)
[2017-06-22] MEDS: LORAZEPAM 1 MG TABLET PO SCH (17:25)
[2017-06-22] MEDS ORDERED: LORAZEPAM INJ 2 MG/1 ML VIAL IV SCH (20:00)
[2017-06-22] MEDS: THIAMINE HCL 100 MG, FOLIC ACID 1 MG in NORMAL SALINE 250 ML IV SCH (21:39)
[2017-06-23] MEDS: LORAZEPAM 1 MG TABLET PO SCH ×3 (00:17→13:42)
[2017-06-23 06:59] LABS: ABSOLUTE BASOPHILS # (AUTO) 0.1 10^3/uL (0.0-0.2); ABSOLUTE EOSINOPHILS # (AUTO) 0.2 10^3/uL (0.0-0.6); ABSOLUTE LYMPHOCYTES (AUTO) 1.1 10^3/uL (0.5-4.7); ABSOLUTE MONOCYTES (AUTO) 1.2 10^3/uL (0.1-1.4); ABSOLUTE NEUT (AUTO) 4.7 10^3/uL (1.7-8.2); EOSINOPHILS % (AUTO) 2.8 % (0-6); HEMOGLOBIN 10.1 g/dL (13.5-17.0); LYMPHOCYTES % (AUTO) 15.6 % (13-45); MEAN CORPUSCULAR HEMOGLOBIN 27.4 pg (27.0-33.4); MEAN CORPUSCULAR HGB CONC 32.5 g/dL (32.0-36.0); MEAN CORPUSCULAR VOLUME 84 fl (80-97); MONOCYTES % (AUTO) 16.3 % (3-13); RED BLOOD COUNT 3.68 10^6/uL (4.35-5.55); RED CELL DISTRIBUTION WIDTH 23.5 % (11.5-14.0); SEGMENTED NEUTROPHILS % (AUTO) 64.3 % (42-78); TOTAL CELLS COUNTED % (AUTO) 100 %; WHITE BLOOD COUNT 7.3 10^3/uL (4.0-10.5)
[2017-06-23 07:04] LABS: PLATELET COUNT 65 10^3/uL (150-450)
[2017-06-23 07:20] LABS: ANION GAP 11 (5-19); BLOOD UREA NITROGEN 7 mg/dL (7-20); CALCIUM 9.4 mg/dL (8.4-10.2); CARBON DIOXIDE 21 mmol/L (22-30); CHLORIDE 106 mmol/L (98-107); GLUCOSE 94 mg/dL (75-110)
[2017-06-23 08:09] LABS: PLATELET COMMENT DECREASED; PLATELET GIANT PRESENT; PLATELET LARGE PRESENT
[2017-06-23] MEDS: IPRATROPIUM/ALBUTEROL 0.5-2.5 MG/3 ML AMPUL NEB SCH ×2 (08:43→19:30)
[2017-06-23] MEDS: MAGNESIUM OXIDE 400 MG TABLET PO SCH ×2 (09:53→18:49)
[2017-06-23] MEDS: POTASSIUM CHLORIDE 10 MEQ TABLET.SA PO SCH ×2 (09:53→21:15)
[2017-06-23] MEDS: MULTIVITAMIN TABLET PO SCH (09:53)
[2017-06-23] MEDS: NICOTINE 21 MG/24 HR PATCH.TD24 TD SCH (13:42)
[2017-06-23] MEDS ORDERED: LORAZEPAM INJ 2 MG/1 ML VIAL IV PRN (19:00)
[2017-06-23] MEDS ORDERED: LORAZEPAM 0.5 MG TABLET PO ONE (19:30)
--- NOTE | 2017-06-23 21:01 | PDOC PROGRESS REPORT ---
Subjective Progress Note for:: 06/23/17 Subjective:: Transferred out of ICU 06/21/16. Report doing better. Tolerating regular diet. No recurrent upper GI bleeds since admission. Denies abdominal pain, no nausea or vomiting, no fever or chills. Reason For Visit: UPPER GI BLEED, HEPATIC CIRRHOSIS Physical Exam Vital Signs: Temp Pulse Resp BP Pulse Ox 98.6 F 104 H 17 103/62 100 06/23/17 19:36 06/23/17 19:36 06/23/17 19:36 06/23/17 19:36 06/23/17 19:36 Intake & Output 06/22/17 06/23/17 06/24/17 06:59 06:59 06:59 Intake Total 1139 930 542 Output Total 750 350 700 Balance 389 580 -158 Weight 87.1 kg 87.1 kg Results Laboratory Results: 06/23/17 06:02 06/23/17 06:02 06/23/17 06/23/17 06:02 06:02 WBC 7.3 RBC 3.68 L Hgb 10.1 L Hct 31.0 L MCV 84 MCH 27.4 MCHC 32.5 RDW 23.5 H Plt Count 65 L Seg Neutrophils % 64.3 Lymphocytes % 15.6 Monocytes % 16.3 H Eosinophils % 2.8 Basophils % 1.0 Absolute Neutrophils 4.7 Absolute Lymphocytes 1.1 Absolute Monocytes 1.2 Absolute Eosinophils 0.2 Absolute Basophils 0.1 Sodium 138.0 Potassium 4.0 Chloride 106 Carbon Dioxide 21 L Anion Gap 11 BUN 7 Creatinine 0.61 Est GFR ( Amer) > 60 Est GFR (Non-Af Amer) > 60 Glucose 94 Calcium 9.4 Impressions: Chest X-Ray 06/17/17 17:05 IMPRESSION: NO ACUTE RADIOGRAPHIC FINDING IN THE CHEST. Assessment & Plan - Diagnosis (1) Upper GI bleed Is this a current diagnosis for this admission?: Yes Plan: S/p 2 units prbc by admission and H&H remains stable. Continue regular diet. (2) Thrombocytopenia Is this a current diagnosis for this admission?: Yes (3) Cirrhosis of liver Is this a current diagnosis for this admission?: Yes (4) Varices of esophagus determined by endoscopy Is this a current diagnosis for this admission?: Yes Plan: S/p octreotide. S/p EGD and variceal banding 06/17/17. Currently with no bleeding. Will comntinue to monitor. (5) Anemia associated with acute blood loss Is this a current diagnosis for this admission?: Yes (6) Alcoholic cirrhosis of liver without ascites Is this a current diagnosis for this admission?: Yes (7) Acute alcoholic hepatitis Is this a current diagnosis for this admission?: Yes (8) Alcohol abuse with physiological dependence Is this a current diagnosis for this admission?: Yes (9) Hypokalemia Is this a current diagnosis for this admission?: Yes (10) Hypomagnesemia Is this a current diagnosis for this admission?: Yes - Plan Summary Plan Summary: Doing better. Have since been off octreotide. Also now off IV Protonix and Prevacid p.o. We continue. Continue benzodiazepine taper as for alcohol withdrawal. Patient can probably be discharged in the next 1-2 days if remains stable. Counseled against continued alcohol use.
[2017-06-23] MEDS ORDERED: FOLIC ACID 1 MG TABLET PO SCH (22:00)
[2017-06-23] MEDS ORDERED: THIAMINE HCL 100 MG TABLET PO SCH (22:00)
[2017-06-24] MEDS: LORAZEPAM 0.5 MG TABLET PO SCH ×3 (01:02→11:12)
[2017-06-24 07:02] LABS: HEMATOCRIT 30.6 % (37.9-51.0); HEMOGLOBIN 9.8 g/dL (13.5-17.0); MEAN CORPUSCULAR HEMOGLOBIN 27.2 pg (27.0-33.4); MEAN CORPUSCULAR HGB CONC 32.1 g/dL (32.0-36.0); MEAN CORPUSCULAR VOLUME 85 fl (80-97); RED BLOOD COUNT 3.61 10^6/uL (4.35-5.55); RED CELL DISTRIBUTION WIDTH 24.4 % (11.5-14.0); WHITE BLOOD COUNT 6.4 10^3/uL (4.0-10.5)
[2017-06-24 07:23] LABS: ANION GAP 10 (5-19); BLOOD UREA NITROGEN 8 mg/dL (7-20); CALCIUM 9.1 mg/dL (8.4-10.2); CARBON DIOXIDE 21 mmol/L (22-30); CHLORIDE 108 mmol/L (98-107); GLUCOSE 106 mg/dL (75-110); POTASSIUM 3.9 mmol/L (3.6-5.0); SODIUM 138.7 mmol/L (137-145)
[2017-06-24] MEDS: IPRATROPIUM/ALBUTEROL 0.5-2.5 MG/3 ML AMPUL NEB SCH (07:38)
[2017-06-24 08:02] LABS: PLATELET COUNT 91 10^3/uL (150-450)
[2017-06-24 08:07] LABS: ABSOLUTE LYMPHOCYTES# (MANUAL) 1.2 10^3/uL (0.5-4.7); ABSOLUTE MONOCYTES # (MANUAL) 0.7 10^3/uL (0.1-1.4); ABSOLUTE NEUTROPHILS# (MANUAL) 4.1 10^3/uL (1.7-8.2); ANISOCYTOSIS 2+; BASOPHILS % (MANUAL) 2 % (0-2); EOSINOPHILS % (MANUAL) 4 % (0-6); LYMPHOCYTES % (MANUAL) 17 % (13-45); MONOCYTES % (MANUAL) 11 % (3-13); OVALOCYTES 1+; PLATELET COMMENT DECREASED; PLATELET LARGE PRESENT; POLYCHROMASIA 1+; SEGMENTED NEUTROPHILS % (MAN) 64 % (42-78); TARGET CELLS SLIGHT; TOTAL CELLS COUNTED 100; TOXIC GRANULATION 1+
[2017-06-24] MEDS: POTASSIUM CHLORIDE 10 MEQ TABLET.SA PO SCH (10:35)
[2017-06-24] MEDS: MAGNESIUM OXIDE 400 MG TABLET PO SCH (10:35)
[2017-06-24] MEDS: MULTIVITAMIN TABLET PO SCH (10:35)
[2017-06-24] MEDS: NICOTINE 21 MG/24 HR PATCH.TD24 TD SCH (11:13)
[2017-06-24 17:27] VITALS: BP 107/54
--- NOTE | 2017-06-24 18:08 | PDOC DISCHARGE SUMMARY ---
General - Admit/Disc Date/PCP Admission Date/Primary Care Provider: 06/17/17 17:33 LA KC MD Discharge Date: 06/24/17 - Additional Information Resuscitation Status: Full Code Discharge Diet: Cardiac Discharge Activity: Activity As Tolerated Prescriptions: Tramadol HCl [Ultram 50 mg Tablet] 50 mg PO Q6HP PRN #40 tablet PRN Reason: For Pain Home Medications: Baclofen [Baclofen 10 mg Tablet] 10 mg PO BID 06/18/17 Cholecalciferol (Vitamin D3) [Vitamin D3 1000 Unit Tablet] 2,000 units PO DAILY 06/18/17 Ferrous Sulfate [Feosol 325 mg Tablet] 325 mg PO DAILY 06/18/17 Folic Acid [Folvite 1 mg Tablet] 1 mg PO DAILY 06/18/17 Furosemide [Lasix 80 mg Tablet] 80 mg PO DAILY 06/18/17 Lactulose [Constulose 10 gm/15 mL Oral Solution] 30 ml PO BID 06/18/17 Lipase/Protease/Amylase [Pancrease EC Capsule] 1 cap PO TID 06/18/17 Loratadine [Claritin] 10 mg PO DAILY 06/18/17 Magnesium Oxide [Mag-Ox 400 mg Tablet] 400 mg PO DAILY 06/18/17 Multivitamin [Multivitamins] 1 cap PO DAILY 06/18/17 Pantoprazole Sodium [Protonix] 40 mg PO DAILY 06/18/17 Potassium Chloride [Klor-Con M20] 20 meq PO DAILY 06/18/17 Spironolactone [Aldactone 100 mg Tablet] 100 mg PO BID 06/18/17 Thiamine HCl [Thiamine 100 mg Tablet] 100 mg PO DAILY 06/18/17 Tramadol HCl [Ultram 50 mg Tablet] 50 mg PO Q6HP PRN #40 tablet 06/24/17 History of Present Illness History of Present Illness: ALO RODRIGUEZ is a 51 year old male who recently relocated from [place]. He was accompanied by his daughter. He has an unclear past medical history, although strong empiric evidence of alcoholic dependence complicated by alcohol cirrhosis, esophageal varices, hepatic encephalopathy, coagulopathy, thrombocytopenia and ascites. Patient is an unreliable historian but states he had 4 hours of vomiting bright red blood with an estimated blood loss of 1 pint. In the emergency room he had recurrent episodes of coffee-ground emesis and tremor. He was found to have anemia with a hemoglobin 9.2, thrombocytopenia of 50, AST of 250 ALT of 70. IV Sandostatin, Protonix, 2 units of packed red blood cells and GI consult were initiated and the hospitalist consulted for admission. Patient denied noncompliance with medication and lifestyle However, his daughter clarified patient consuming large amounts of alcohol on a daily basis and not taking medications regularly. Hospital Course Hospital Course: He was admitted for GI bleeding. GI consultation was obtained. Initially he was admitted to the ICU. He underwent an EGD. Source of his bleeding was determined to be due to esophageal varices. He underwent banding of the varices. His bleeding discontinued. He was transferred out of the ICU. His hospital stay was uneventful. Physical Exam Vital Signs: Temp Pulse Resp BP Pulse Ox 98.0 F 101 H 17 117/78 97 06/24/17 15:08 06/24/17 15:08 06/24/17 15:08 06/24/17 15:08 06/24/17 15:08 Intake & Output 06/23/17 06/24/17 06/25/17 06:59 06:59 06:59 Intake Total 930 907 725 Output Total 350 1000 550 Balance 580 -93 175 Weight 87.1 kg 87.1 kg General appearance: PRESENT: no acute distress, well-developed, well-nourished Results Laboratory Results: 06/24/17 06:23 06/24/17 06:23 06/24/17 06/24/17 06:23 06:23 WBC 6.4 RBC 3.61 L Hgb 9.8 L Hct 30.6 L MCV 85 MCH 27.2 MCHC 32.1 RDW 24.4 H Plt Count 91 L Seg Neutrophils % Not Reportable Lymphocytes % Not Reportable Monocytes % Not Reportable Eosinophils % Not Reportable Basophils % Not Reportable Absolute Neutrophils Not Reportable Absolute Lymphocytes Not Reportable Absolute Monocytes Not Reportable Absolute Eosinophils Not Reportable Absolute Basophils Not Reportable Sodium 138.7 Potassium 3.9 Chloride 108 H Carbon Dioxide 21 L Anion Gap 10 BUN 8 Creatinine 0.62 Est GFR ( Amer) > 60 Est GFR (Non-Af Amer) > 60 Glucose 106 Calcium 9.1 Impressions: Chest X-Ray 06/17/17 17:05 IMPRESSION: NO ACUTE RADIOGRAPHIC FINDING IN THE CHEST. Qualifiers - * PATEINT BEING DISCHARGED WITH ANY OF THE FOLLOWING DIAGNOSIS?: No
== END 2017-06-24 18:15 | disposition home or self-care (01) | DRG 432 ==
LOC: ER 16:20 → EH 17:33 → ICU 20:25 → 5 06-21 21:10
PROVIDERS: ADMIT Emergency Medicine; ATTEND Emergency Medicine
PROC: 30233N1 Transfusion of Nonautologous Red Blood Cells into Peripheral Vein, Percutaneous Approach (ICD-10-PCS; 2017-06-17)
PROC: 3E0F73Z Introduction of Anti-inflammatory into Respiratory Tract, Via Natural or Artificial Opening (ICD-10-PCS; 2017-06-17)
PROC: 06L38CZ Occlusion of Esophageal Vein with Extraluminal Device, Via Natural or Artificial Opening Endoscopic (ICD-10-PCS; principal; 2017-06-17 20:00)
PROC: 30233R1 Transfusion of Nonautologous Platelets into Peripheral Vein, Percutaneous Approach (ICD-10-PCS; 2017-06-18)
PROC: 3E0234Z Introduction of Serum, Toxoid and Vaccine into Muscle, Percutaneous Approach (ICD-10-PCS; 2017-06-24)
DX: K70.31 Alcoholic cirrhosis of liver with ascites (principal); I85.11 Secondary esophageal varices with bleeding; K29.21 Alcoholic gastritis with bleeding; F10.231 Alcohol dependence with withdrawal delirium; D62 Acute posthemorrhagic anemia; K70.40 Alcoholic hepatic failure without coma; I10 Essential (primary) hypertension; D69.59 Other secondary thrombocytopenia; R45.1 Restlessness and agitation; E87.6 Hypokalemia; E83.42 Hypomagnesemia; F17.210 Nicotine dependence, cigarettes, uncomplicated; Z23 Encounter for immunization; Z78.1 Physical restraint status; Z83.6 Family history of other diseases of the respiratory system
CPT/HCPCS: 36415; 36430; 43244; 71045; 731; 80048; 80053; 80074; 80076; 80307; 82140; 82962; 83735; 85025; 85610; 85730; 86850; 86900; 86901; 86920; 90686; 94640; 96374; 99291; J0171; J2060; J2354; J2405; J2704; J2765; J3010; J3411; J3475; J3480; J3490; J7030; J7040; J7050; J7620; P9016; P9035; S0164

== ENCOUNTER 2017-08-06 19:27 | Emergency (ER) | payer OTHER ==
--- NOTE | 2017-08-06 20:11 | ER Document Report ---
HPI - HPI Pain Level: 4 Context: Patient is a 51-year-old male who presents emergency department the chief complaint of leftHand pain and swelling. He recurrently denies any recent fall , trauma to the hand. Patient states that he is a chronic alcoholic with a history of cirrhosis. Denies any recent episodes of LOC. Patient lives alone - EENT EENT: DENIES: Sore Throat - NEURO Neurology: DENIES: Headache - CARDIOVASCULAR Cardiovascular: DENIES: Chest pain - RESPIRATORY Respiratory: DENIES: Trouble Breathing - REPRODUCTIVE Reproductive: DENIES: : - MUSCULOSKELETAL Musculoskeletal: REPORTS: Extremity pain - left hand Past Medical History - Social History Smoking Status: Current Every Day Smoker Chew tobacco use (# tins/day): No Frequency of alcohol use: Occasional Drug Abuse: None Family History: COPD Patient has suicidal ideation: No Patient has homicidal ideation: No - Past Medical History Cardiac Medical History: Reports: Hx Hypertension Renal/ Medical History: Denies: Hx Peritoneal Dialysis GI Medical History: Reports: Hx Cirrhosis Vertical Provider Document - CONSTITUTIONAL Agree With Documented VS: Yes Notes: PHYSICAL EXAM GENERAL: Alert, interacts well. HEAD: Normocephalic, atraumatic. LUNGS: Clear to auscultation bilaterally, no wheezes, rales, or rhonchi. No respiratory distress. HEART: Regular rate and rhythm. No murmurs, gallops, or rubs. EXTREMITIES: Moves all 4 extremities spontaneously. No edema, radial pulses 2/4 bilaterally. Ecchymosis and edema over the fourth and fifth metacarpals of the left hand without any evidence of deformity. Capillary refill less than 2 seconds NEUROLOGICAL: Alert and oriented x4. Normal speech. PSYCH: Normal affect, normal mood. SKIN: Warm, dry, normal turgor. No rashes or lesions noted. - INFECTION CONTROL TRAVEL OUTSIDE OF THE [place] IN LAST 30 DAYS: No Course - Re-evaluation Re-evalutation: 08/06/17 23:04 No evidence of a septic joint, gout flare, dislocation, or fracture on exam and imaging. Vitals wnl. CBC and coag panel without any evidence or confirmed for blood dyscrasias. No concern for hemarthrosis given patient's recurrent denial of injury at this time, I do not see an indication for labs or further imaging. Will discharge with conservative measures, return precautions, and follow-up recommendations. - Vital Signs Vital signs: Temp Pulse Resp BP Pulse Ox 98.0 F 93 20 128/86 H 98 08/06/17 19:54 08/06/17 19:54 08/06/17 19:54 08/06/17 19:54 08/06/17 19:54 - Laboratory Result Diagrams: 08/06/17 21:00 Procedures - Immobilization Left Hand Pre-Proc Neuro Vasc Exam: Normal Immobilizer type: Other - boxers splint Performed by: PCT Post-Proc Neuro Vasc Exam: Normal, Unchanged from pre-exam Discharge - Discharge Clinical Impression: Injury of left hand Qualifiers: Encounter type: initial encounter Qualified Code(s): S69.92XA - Unspecified injury of left wrist, hand and finger(s), initial encounter Condition: Good Disposition: HOME, SELF-CARE Instructions: Contusion ([facility]), Temporary Splint ([facility]) Referrals: NAM UMANZOR DO [ACTIVE STAFF] - Follow up as needed VAHE ECHAVARRIA MD [ACTIVE STAFF] - Follow up in 1 week
[2017-08-06] MEDS ORDERED: ACETAMINOPHEN 325 MG TABLET PO ONE ×2 (20:17→23:03)
[2017-08-06 21:16] LABS: ABSOLUTE BASOPHILS # (AUTO) 0.1 10^3/uL (0.0-0.2); ABSOLUTE EOSINOPHILS # (AUTO) 0.1 10^3/uL (0.0-0.6); ABSOLUTE LYMPHOCYTES (AUTO) 1.4 10^3/uL (0.5-4.7); ABSOLUTE MONOCYTES (AUTO) 0.5 10^3/uL (0.1-1.4); ABSOLUTE NEUT (AUTO) 3.3 10^3/uL (1.7-8.2); BASOPHILS % (AUTO) 1.4 % (0-2); EOSINOPHILS % (AUTO) 1.6 % (0-6); HEMATOCRIT 34.3 % (37.9-51.0); HEMOGLOBIN 10.9 g/dL (13.5-17.0); LYMPHOCYTES % (AUTO) 25.8 % (13-45); MEAN CORPUSCULAR HEMOGLOBIN 26.1 pg (27.0-33.4); MEAN CORPUSCULAR HGB CONC 31.7 g/dL (32.0-36.0); MEAN CORPUSCULAR VOLUME 82 fl (80-97); MONOCYTES % (AUTO) 10.2 % (3-13); RED BLOOD COUNT 4.17 10^6/uL (4.35-5.55); TOTAL CELLS COUNTED % (AUTO) 100 %; WHITE BLOOD COUNT 5.4 10^3/uL (4.0-10.5)
[2017-08-06 21:19] LABS: PLATELET COUNT 46 10^3/uL (150-450)
--- NOTE | 2017-08-06 21:33 | RADIOLOGY REPORT (SQ) ---
EXAM DESCRIPTION: HAND LEFT 3 VIEWS COMPLETED DATE/TIME: 08/06/2017 8:43 pm REASON FOR STUDY: swelling, bruisng, pain COMPARISON: None. EXAM PARAMETERS: NUMBER OF VIEWS: Three views. TECHNIQUE: AP, lateral and oblique radiographic images acquired of the left hand. LIMITATIONS: None. FINDINGS: MINERALIZATION: Normal. BONES: No acute fracture or dislocation. No worrisome bone lesions. JOINTS: No effusions. SOFT TISSUES: No soft tissue swelling. No foreign body. OTHER: No other significant finding. IMPRESSION: No fracture identified. TECHNICAL DOCUMENTATION: JOB ID: [id number] [id number] 2010 [employer]- All Rights Reserved Reading location - IP/workstation name: [email or web address]
[2017-08-06 21:36] LABS: ANISOCYTOSIS 3+; HYPOCHROMASIA SLIGHT; PLATELET COMMENT DECREASED; POIKILOCYTOSIS 2+; TARGET CELLS SLIGHT; TOXIC GRANULATION SLIGHT
[2017-08-06 21:51] LABS: INTERNATIONAL RATION (INR) 1.29
[2017-08-06 23:31] VITALS: BP 137/90
== END 2017-08-06 23:30 | disposition home or self-care (01) ==
LOC: ER 19:27
PROC: 2W3FX1Z Immobilization of Left Hand using Splint (ICD-10-PCS; principal; 2017-08-06)
DX: S69.92XA Unspecified injury of left wrist, hand and finger(s), initial encounter (principal); X58.XXXA Exposure to other specified factors, initial encounter; F17.200 Nicotine dependence, unspecified, uncomplicated; I10 Essential (primary) hypertension
CPT/HCPCS: 36415; 85025; 85610; 85730; 99284

== ENCOUNTER 2017-08-31 18:59 | Emergency (ER) | payer OTHER ==
[2017-08-31] MEDS ORDERED: PANTOPRAZOLE SODIUM 40 MG VIAL IV PRN (19:50)
[2017-08-31] MEDS ORDERED: CEFTRIAXONE 1 GM/D5W RTU 1 GM/50 ML RTUPB IV ONE (19:51)
[2017-08-31 19:58] LABS: PROTHROMBIN TIME 18.9 SEC (11.4-15.4)
[2017-08-31 19:59] LABS: PARTIAL THROMBOPLASTIN TIME 38.7 SEC (23.5-35.8)
[2017-08-31 20:05] LABS: ALANINE AMINOTRANSFERASE 45 U/L (21-72); ALBUMIN 3.6 g/dL (3.5-5.0); ALKALINE PHOSPHATASE 179 U/L (38-126); ASPARTATE AMINO TRANSFERASE 179 U/L (17-59); BILIRUBIN,DIRECT 4.4 mg/dL (0.0-0.4); BILIRUBIN,TOTAL 6.8 mg/dL (0.2-1.3); BLOOD UREA NITROGEN 7 mg/dL (7-20); CALCIUM 8.9 mg/dL (8.4-10.2); CARBON DIOXIDE 18 mmol/L (22-30); CREATINE KINASE 79 U/L (55-170); GLUCOSE 101 mg/dL (75-110); TOTAL PROTEIN 7.9 g/dL (6.3-8.2)
[2017-08-31 20:10] LABS: CHLORIDE 95 mmol/L (98-107); SODIUM 136.2 mmol/L (137-145)
[2017-08-31 20:11] LABS: ANION GAP 23 (5-19)
[2017-08-31 20:13] LABS: ABSOLUTE BASOPHILS # (AUTO) 0.2 10^3/uL (0.0-0.2); ABSOLUTE EOSINOPHILS # (AUTO) 0.1 10^3/uL (0.0-0.6); ABSOLUTE LYMPHOCYTES (AUTO) 1.4 10^3/uL (0.5-4.7); ABSOLUTE MONOCYTES (AUTO) 1.2 10^3/uL (0.1-1.4); ABSOLUTE NEUT (AUTO) 9.2 10^3/uL (1.7-8.2); BASOPHILS % (AUTO) 1.5 % (0-2); EOSINOPHILS % (AUTO) 0.9 % (0-6); HEMATOCRIT 29.6 % (37.9-51.0); HEMOGLOBIN 9.1 g/dL (13.5-17.0); LYMPHOCYTES % (AUTO) 11.4 % (13-45); MEAN CORPUSCULAR HEMOGLOBIN 26.1 pg (27.0-33.4); MEAN CORPUSCULAR HGB CONC 30.7 g/dL (32.0-36.0); MEAN CORPUSCULAR VOLUME 85 fl (80-97); MONOCYTES % (AUTO) 10.2 % (3-13); PLATELET COUNT 107 10^3/uL (150-450); RED BLOOD COUNT 3.49 10^6/uL (4.35-5.55); TOTAL CELLS COUNTED % (AUTO) 100 %; WHITE BLOOD COUNT 12.1 10^3/uL (4.0-10.5)
[2017-08-31 20:16] LABS: CREATINE KINASE MB 0.47 ng/mL (<4.55)
[2017-08-31 20:18] LABS: TROPONIN I < 0.012 ng/mL
[2017-08-31 20:28] LABS: ACANTHOCYTES SLIGHT; ANISOCYTOSIS 3+; BURR CELLS SLIGHT; OVALOCYTES 1+; POIKILOCYTOSIS 2+; TARGET CELLS SLIGHT
[2017-08-31 20:29] LABS: HYPOCHROMASIA SLIGHT; PLATELET COMMENT DECREASED
[2017-08-31] MEDS ORDERED: POTASSIUM CHLORIDE 10 MEQ TABLET.SA PO ONE ×2 (20:30→20:53)
[2017-08-31] MEDS ORDERED: POTASSI CL 20 MEQ/50 ML RIDER 20 MEQ/50 ML RTUPB IV SCH (20:30)
--- NOTE | 2017-08-31 21:03 | RADIOLOGY REPORT (SQ) ---
EXAM DESCRIPTION: CT ABD/PELVIS WITH IV ONLY COMPLETED DATE/TIME: 08/31/2017 8:40 pm REASON FOR STUDY: abd pain COMPARISON: 08/07/2017 TECHNIQUE: CT scan of the abdomen and pelvis performed using helical scanning technique with dynamic intravenous contrast injection. No oral contrast. Images reviewed with lung, soft tissue, and bone windows. Reconstructed coronal and sagittal MPR images reviewed. Delayed images for evaluation of the urinary system also acquired. All images stored on PACS. All CT scanners at this facility use dose modulation, iterative reconstruction, and/or weight based d osing when appropriate to reduce radiation dose to as low as reasonably achievable (ALARA). [facility]: Dose Right [facility]: CareDose [facility]: Dose Right [facility]: Teradose 4D [facility]: Axtria CONTRAST TYPE AND DOSE: contrast/concentration: Isovue 370.00 mg/ml; Total Contrast Delivered: 92.0 ml; Total Saline Delivered: 70.0 ml RENAL FUNCTION: GFR > 60. RADIATION DOSE: CT Rad equipment meets quality standard of care and radiation dose reduction techniq ues were employed. CTDIvol: 15.0 - 16.8 mGy. DLP: 1884 mGy-cm.. LIMITATIONS: None. FINDINGS: LOWER CHEST: New patchy -nodular airspace disease in the left lower lobe. LIVER: Similar enlarged heterogeneous -nodular appearance. Large amount of ascites. SPLEEN: Splenomegaly. PANCREAS: Smaller calcifications in the pancreatic head. Pancreatic duct not dilated. GALLBLADDER: Bone calcified gallstone. ADRENAL GLANDS: No significant masses or asymmetry. RIGHT KIDNEY AND URETER: No solid masses. Small cyst. No significant calcifications. No hydroneph rosis or hydroureter. LEFT KIDNEY AND URETER: No solid masses. No significant calcifications. No hydronephrosis or hydr oureter. AORTA AND VESSELS: Multiple large portal venous varices are present in the upper abdomen. No aneurys m. No dissection. Renal arteries, SMA, celiac without stenosis. RETROPERITONEUM: No bulky retroperitoneal adenopathy. BOWEL AND PERITONEAL CAVITY: Multiple varices. No obstruction. Large amount of ascites. APPENDIX: Normal. PELVIS: Moderate free fluid. Normal bladder. ABDOMINAL WALL: No masses. No hernias. BONES: No acute findings. OTHER: No other significant finding. IMPRESSION: New Large amount of ascites.New patchy -nodular airspace disease in the left lower lobe. Portal venous hypertension. Cirrhosis. TECHNICAL DOCUMENTATION: JOB ID: [id number] [id number] Quality ID # [id number]: Final reports with documentation of one or more dose reduction techniques (e.g., Au tomated exposure control, adjustment of the mA and/or kV according to patient size, use of iterative reconstruction technique) 2010 [employer]- All Rights Reserved Reading location - IP/workstation name: [email or web address]
--- NOTE | 2017-08-31 21:04 | RADIOLOGY REPORT (SQ) ---
EXAM DESCRIPTION: CHEST SINGLE VIEW COMPLETED DATE/TIME: 08/31/2017 8:49 pm REASON FOR STUDY: chest pain COMPARISON: 08/07/2017 EXAM PARAMETERS: NUMBER OF VIEWS: One view. TECHNIQUE: Single frontal radiographic view of the chest acquired. RADIATION DOSE: NA LIMITATIONS: None. FINDINGS: LUNGS AND PLEURA: New patchy airspace opacities in the left lung base. Right lung appears clear. MEDIASTINUM AND HILAR STRUCTURES: Stable. HEART AND VASCULAR STRUCTURES: Stable. BONES: No acute findings. HARDWARE: None in the chest. OTHER: No other significant finding. IMPRESSION: New patchy airspace opacities in the left lung base. TECHNICAL DOCUMENTATION: JOB ID: [id number] [place]-72 2010 [employer]- All Rights Reserved Reading location - IP/workstation name: [email or web address]
[2017-08-31] MEDS ORDERED: CEFTRIAXONE INJ 1000 MG VIAL ONE (21:10)
[2017-08-31] MEDS ORDERED: THIAMINE HCL 100 MG, FOLIC ACID 1 MG in NORMAL SALINE 250 ML IV ONE (21:26)
--- NOTE | 2017-08-31 21:36 | ER Document Report ---
ED General - General Chief Complaint: Abdominal Pain Stated Complaint: POSSIBLE SEIZURE Time Seen by Provider: 08/31/17 19:14 Mode of Arrival: Ambulatory Information source: Patient, Emergency Med Personnel Notes: 51-year-old male with a history of hypertension, liver cirrhosis, esophageal varices, remote upper GI bleed, alcohol abuse presents via EMS from home after his daughter found him rolling around in the grass. EMS reports the patient was initially altered. Now alert and oriented 3. Patient complaining of chest pain, abdominal pain, abdominal distention. He reports black stools. Patient's chest pain is described as an intermittent, sharp pain. He denies any hematemesis. Patient has no primary care in this area. He states he recently moved from [place]. His last drink was this morning. He admits to persistent alcohol use. She takes lactulose daily and a multivitamin. Denies any other medication use, drug use. TRAVEL OUTSIDE OF THE [place] IN LAST 30 DAYS: No - HPI Onset: Just prior to arrival Quality of pain: Stabbing Severity: Mild Associated symptoms: Chest pain, Nausea, Shortness of breath Exacerbated by: Denies Relieved by: Denies Similar symptoms previously: Yes Recently seen / treated by doctor: Yes - Related Data Allergies/Adverse Reactions: No Known Allergies Allergy (Verified 08/31/17 21:38) Past Medical History - General Information source: Patient, [facility] Records - Social History Smoking Status: Current Every Day Smoker Frequency of alcohol use: Heavy Drug Abuse: None Lives with: Family Family History: COPD Patient has suicidal ideation: No Patient has homicidal ideation: No - Past Medical History Cardiac Medical History: Reports: Hx Hypertension Renal/ Medical History: Denies: Hx Peritoneal Dialysis GI Medical History: Reports: Hx Cirrhosis, Hx Liver Failure Review of Systems - Review of Systems Notes: Patient denies fever, chills, headache, ear pain, sore throat, cough, back pain , dysuria, hematuria, rash, SI/HI. Patient admits to recent alcohol use, chest pain, shortness of breath, abdominal pain, abdominal distention, black stools. Physical Exam - Vital signs Vitals: Resp Pulse Ox 17 92 08/31/17 19:30 08/31/17 19:30 Interpretation: Normal, Tachycardic, Hypoxic. No: Febrile - Notes Notes: PHYSICAL EXAMINATION: GENERAL: ill-appearing, in no acute distress. HEAD: Atraumatic, normocephalic. EYES: Pupils equal round and reactive to light, extraocular movements intact, sclera icteric. ENT: Nares patent, oropharynx clear without exudates. Dry mucous membranes. NECK: Normal range of motion, supple without lymphadenopathy LUNGS: Diminished breath sounds bilaterally. No wheezes rales or rhonchi. HEART: Regular rate and rhythm without murmurs ABDOMEN: Distended, umbilical hernia. No guarding, no rebound. No masses appreciated. Rectal: Brown stool. Hemoccult negative Musculoskeletal: Normal range of motion, no pitting or edema. No cyanosis. NEUROLOGICAL: NO 3 cranial nerves grossly intact. Normal speech, normal gait. Normal sensory, motor exams PSYCH: Normal mood, normal affect. SKIN: Mild jaundice warm, Dry, normal turgor, no rashes or lesions noted. Course - Vital Signs Vital signs: Temp Pulse Resp BP Pulse Ox 98.4 F 22 H 111/69 97 08/31/17 19:35 08/31/17 22:39 08/31/17 22:39 08/31/17 22:39 Laboratory 08/31/17 08/31/17 08/31/17 18:35 18:35 18:35 WBC 12.1 H RBC 3.49 L Hgb 9.1 L Hct 29.6 L MCV 85 MCH 26.1 L MCHC 30.7 L RDW 26.0 H Plt Count 107 L Seg Neutrophils % 76.0 Lymphocytes % 11.4 L Monocytes % 10.2 Eosinophils % 0.9 Basophils % 1.5 Absolute Neutrophils 9.2 H Absolute Lymphocytes 1.4 Absolute Monocytes 1.2 Absolute Eosinophils 0.1 Absolute Basophils 0.2 Platelet Comment DECREASED Hypochromasia SLIGHT Poikilocytosis 2+ Anisocytosis 3+ Target Cells SLIGHT Ovalocytes 1+ Marble Cells SLIGHT Acanthocytes (Spur) SLIGHT PT 18.9 H INR 1.50 APTT 38.7 H Sodium 136.2 L Potassium 3.0 L* Chloride 95 L Carbon Dioxide 18 L Anion Gap 23 H BUN 7 Creatinine 0.49 L Est GFR ( Amer) > 60 Est GFR (Non-Af Amer) > 60 Glucose 101 Calcium 8.9 Magnesium 1.4 L Total Bilirubin 6.8 H Direct Bilirubin 4.4 H Neonat Total Bilirubin Not Reportable Neonat Direct Bilirubin Not Reportable Neonat Indirect Bili Not Reportable AST 179 H ALT 45 Alkaline Phosphatase 179 H Ammonia Creatine Kinase 79 CK-MB (CK-2) Troponin I Total Protein 7.9 Albumin 3.6 Lipase Stool Occult Blood Serum Alcohol Blood Type Antibody Screen 08/31/17 08/31/17 08/31/17 18:35 18:35 19:34 WBC RBC Hgb Hct MCV MCH MCHC RDW Plt Count Seg Neutrophils % Lymphocytes % Monocytes % Eosinophils % Basophils % Absolute Neutrophils Absolute Lymphocytes Absolute Monocytes Absolute Eosinophils Absolute Basophils Platelet Comment Hypochromasia Poikilocytosis Anisocytosis Target Cells Ovalocytes Jp Cells Acanthocytes (Spur) PT INR APTT Sodium Potassium Chloride Carbon Dioxide Anion Gap BUN Creatinine Est GFR ( Amer) Est GFR (Non-Af Amer) Glucose Calcium Magnesium Total Bilirubin Direct Bilirubin Neonat Total Bilirubin Neonat Direct Bilirubin Neonat Indirect Bili AST ALT Alkaline Phosphatase Ammonia Creatine Kinase CK-MB (CK-2) 0.47 Troponin I < 0.012 Total Protein Albumin Lipase 154.4 Stool Occult Blood Serum Alcohol Blood Type A POSITIVE Antibody Screen NEGATIVE 08/31/17 08/31/17 08/31/17 19:37 19:37 20:20 WBC RBC Hgb Hct MCV MCH MCHC RDW Plt Count Seg Neutrophils % Lymphocytes % Monocytes % Eosinophils % Basophils % Absolute Neutrophils Absolute Lymphocytes Absolute Monocytes Absolute Eosinophils Absolute Basophils Platelet Comment Hypochromasia Poikilocytosis Anisocytosis Target Cells Ovalocytes Marble Cells Acanthocytes (Spur) PT INR APTT Sodium Potassium Chloride Carbon Dioxide Anion Gap BUN Creatinine Est GFR ( Amer) Est GFR (Non-Af Amer) Glucose Calcium Magnesium Total Bilirubin Direct Bilirubin Neonat Total Bilirubin Neonat Direct Bilirubin Neonat Indirect Bili AST ALT Alkaline Phosphatase Ammonia 19.7 Creatine Kinase CK-MB (CK-2) Troponin I Total Protein Albumin Lipase Stool Occult Blood NEGATIVE Serum Alcohol < 10 Blood Type Antibody Screen Chest X-Ray 08/31/17 19:48 IMPRESSION: New patchy airspace opacities in the left lung base. Abdomen/Pelvis CT 08/31/17 19:52 IMPRESSION: New Large amount of ascites.New patchy -nodular airspace disease in the left lower lobe. Portal venous hypertension. Cirrhosis. 08/31/17 22:50 Mr. Lundberg is a 51-year-old male with a history of alcohol abuse, known alcohol related cirrhosis, esophageal varices who presents with complaint of chest pain , abdominal pain, shortness of breath. Upon arrival vitals were reviewed. Patient is afebrile, tachypneic. Previous medical records and nursing notes reviewed. Previous imaging reviewed. Patient admits to continuous alcohol use with his last drink this morning. Patient was found to have a new large amount of ascites on CAT scan which was not present 3 weeks prior to this visit. Patient found to have worsening liver failure with significantly elevated direct and indirect T bili. which has increased from recent visit 08/07/17. Patient found to be hypokalemic. Patient was administered potassium, thiamine , folic acid, Protonix, ceftriaxone. Since we do not have GI on staff I feel transfer to another facility is warranted at this time. [facility] has accepted the patient. Accepting physician Dr. Mckinney. - Laboratory Result Diagrams: 08/31/17 18:35 08/31/17 18:35 Laboratory results interpreted by me: 08/31/17 08/31/17 08/31/17 18:35 18:35 18:35 WBC 12.1 H RBC 3.49 L Hgb 9.1 L Hct 29.6 L MCH 26.1 L MCHC 30.7 L RDW 26.0 H Plt Count 107 L Lymphocytes % 11.4 L Absolute Neutrophils 9.2 H PT 18.9 H APTT 38.7 H Sodium 136.2 L Potassium 3.0 L* Chloride 95 L Carbon Dioxide 18 L Anion Gap 23 H Creatinine 0.49 L Magnesium 1.4 L Total Bilirubin 6.8 H Direct Bilirubin 4.4 H AST 179 H Alkaline Phosphatase 179 H - Diagnostic Test Radiology reviewed: Image reviewed, Reports reviewed - EKG Interpretation by [place] EKG shows normal: Sinus rhythm Rate: Tachycardia Rhythm: NSR Discharge - Discharge Clinical Impression: Alcohol abuse, Hypokalemia, Alcohol abuse with physiological dependence, Abnormal LFTs Liver failure Qualifiers: Liver failure chronicity: chronic Hepatic coma status: without hepatic coma Qualified Code(s): K72.10 - Chronic hepatic failure without coma Anemia Qualifiers: Anemia type: unspecified type Qualified Code(s): D64.9 - Anemia, unspecified Ascites Qualifiers: Ascites type: due to alcoholic cirrhosis Qualified Code(s): K70.31 - Alcoholic cirrhosis of liver with ascites Condition: Fair Disposition: [facility]
[2017-08-31] MEDS ORDERED: THIAMINE HCL INJ 200 MG/2 ML VIAL ONE (21:56)
[2017-08-31] MEDS ORDERED: FOLIC ACID INJ 5 MG/1 ML 10 ML VIAL ONE (21:57)
[2017-08-31 23:24] VITALS: BP 101/67
[2017-08-31] MEDS ORDERED: NICOTINE 14 MG/24 HR PATCH.TD24 TD ONE (23:27)
--- NOTE | 2017-09-01 12:59 | EKG REPORT ---
SEVERITY:- ABNORMAL ECG - SINUS RHYTHM PROBABLE INFERIOR INFARCT, AGE INDETERMINATE BORDERLINE R WAVE PROGRESSION, ANTERIOR LEADS BORDERLINE PROLONGED QT INTERVAL : Confirmed by: Linda Arellano 01-Sep-2017 12:58:37
== END 2017-08-31 23:45 | disposition short-term general hospital (02) ==
LOC: ER 18:59
DX: K72.10 Chronic hepatic failure without coma (principal); K70.31 Alcoholic cirrhosis of liver with ascites; D64.9 Anemia, unspecified; F10.10 Alcohol abuse, uncomplicated; E87.6 Hypokalemia; R94.5 Abnormal results of liver function studies; R07.9 Chest pain, unspecified; R10.9 Unspecified abdominal pain; R14.0 Abdominal distension (gaseous); F17.200 Nicotine dependence, unspecified, uncomplicated; I10 Essential (primary) hypertension
CPT/HCPCS: 93005; 99285; 96365; 96366; 96367; 96368; 86900; 86901; 36415; 87040; 82553; 86850; 80307; 82140; 82550; 83690; 83735; 85025; 85610; 85730; 82272; 87077; 80053; 84484; 87186; 71045; 74177; 93010; J3490; S0164; J0696; J3411; J7050

== ENCOUNTER 2017-09-11 02:43 | Emergency (ER) | payer OTHER ==
[2017-09-11] MEDS ORDERED: MORPHINE SULFATE IR 15 MG TABLET PO ONE (02:59)
[2017-09-11] MEDS ORDERED: DIPH/PERTUSS(ACELL)/TETANUS VAC/PF 0.5 ML SYR (>=10YO) IM ONE (03:02)
--- NOTE | 2017-09-11 03:03 | ER Document Report ---
ED Extremity Problem, Lower - General Chief Complaint: Ankle Pain Stated Complaint: ANKLE PAIN Time Seen by Provider: 09/11/17 02:52 Notes: Patient is a 51-year-old male that comes to the ED for chief complaint of right foot/ankle pain. He states 3 days ago he tripped, twisted his ankle, and landed on his right knee, he states since that time he has had swelling and pain. He denies any other injuries other than having scrapes over his hands from the fall. His tetanus is not up-to-date. He has a history of cirrhosis of the liver. TRAVEL OUTSIDE OF THE [place] IN LAST 30 DAYS: No - Related Data Allergies/Adverse Reactions: No Known Allergies Allergy (Verified 08/31/17 21:38) Past Medical History - General Information source: Patient - Social History Smoking Status: Current Every Day Smoker Smoking Education Provided: Yes - <3 min Frequency of alcohol use: None Drug Abuse: None Lives with: Family Family History: COPD - Past Medical History Cardiac Medical History: Reports: Hx Hypertension Renal/ Medical History: Denies: Hx Peritoneal Dialysis GI Medical History: Reports: Hx Cirrhosis, Hx Liver Failure - Immunizations Immunizations up to date: No Hx Diphtheria, Pertussis, Tetanus Vaccination: Yes Review of Systems - Review of Systems Constitutional: No symptoms reported EENT: No symptoms reported Cardiovascular: No symptoms reported Respiratory: No symptoms reported Gastrointestinal: No symptoms reported Genitourinary: No symptoms reported Male Genitourinary: No symptoms reported Musculoskeletal: See HPI Skin: No symptoms reported Hematologic/Lymphatic: No symptoms reported Neurological/Psychological: No symptoms reported Physical Exam - Vital signs Vitals: Resp Pulse Ox 25 H 96 09/11/17 03:10 09/11/17 03:10 - General General appearance: Appears well In distress: None - HEENT Head: Normocephalic Eyes: Normal Extraocular movements intact: Yes Eyelashes: Normal Pupils: PERRL Nasal: Normal Mouth/Lips: Normal Mucous membranes: Normal Pharynx: Normal Neck: Normal - Respiratory Respiratory status: No respiratory distress Breath sounds: Normal. No: Decreased air movement, Wheezing - Cardiovascular Rhythm: Regular. No: Tachycardia Heart sounds: Normal auscultation, S1 appreciated, S2 appreciated - Abdominal Distension: Other - Distention of the abdomen consistent with ascites, abdomen is still soft, no rigidity, guarding - Back Back: Normal, Nontender. No: Tender - Extremities General upper extremity: Normal inspection, Nontender, Normal ROM, Normal strength General lower extremity: Other - Swelling to the right foot, ankle, and distal leg, tenderness over the right knee at the patella and over the proximal tibia as well, distal sensation and capillary refill intact, lower extremity exam is unremarkable otherwise - Neurological Neuro grossly intact: Yes Cognition: Normal Orientation: AAOx4 Hunters Coma Scale Eye Opening: Spontaneous Anju Coma Scale Verbal: Oriented Anju Coma Scale Motor: Obeys Commands Hunters Coma Scale Total: 15 Speech: Normal Cranial nerves: Normal Cerebellar coordination: Normal Motor strength normal: LUE, RUE, LLE, RLE 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 Consistent with [place]. Normal distal neurovascular exam. No other injuries other than mild abrasions, tetanus was updated. Patient provided with crutches, splint was placed, provided with pain medication, discussed orthopedics referral, discussed return precautions, patient states understanding and agreement. - Vital Signs Vital signs: Temp Pulse Resp BP Pulse Ox 17 127/86 H 94 09/11/17 06:02 09/11/17 06:02 09/11/17 06:02 Procedures - Immobilization right leg and foot Pre-Proc Neuro Vasc Exam: Normal Immobilizer type: Posterior ankle Performed by: PCT Post-Proc Neuro Vasc Exam: Normal Alignment checked and good: Yes Discharge - Discharge Clinical Impression: Skin abrasion Fall Qualifiers: Encounter type: initial encounter Qualified Code(s): W19.XXXA - Unspecified fall, initial encounter Fracture, fibula, proximal Qualifiers: Encounter type: initial encounter Fracture type: closed Fracture morphology: unspecified fracture morphology Laterality: right Qualified Code(s): S82.831A - Other fracture of upper and lower end of right fibula, initial encounter for closed fracture Phalanx fracture, foot Qualifiers: Encounter type: initial encounter Toe: unspecified toe Fracture type: closed Fracture alignment: nondisplaced Laterality: right Qualified Code(s): S92.911A - Unspecified fracture of right toe(s), initial encounter for closed fracture Condition: Stable Disposition: HOME, SELF-CARE Instructions: Tetanus Immunization Given ([facility]) Additional Instructions: There is a fracture in your leg (the smaller bone, the fibula, with the fracture located near your knee), and fracture of a bone in your foot. Wear the splint, follow-up with orthopedics referral closely, call today to set up this close follow-up. Use crutches. Take pain medication if needed. Return for any concerning symptoms including severe swelling or pain. Prescriptions: Morphine Sulfate [Morphine Ir 15 Mg Tablet] 15 mg PO Q4HP PRN #20 tablet PRN Reason: Referrals: VALARIE ASIF MD [ACTIVE STAFF] - Follow up tomorrow
[2017-09-11] MEDS ORDERED: HYDROMORPHONE HCL INJ/PF 2 MG/ML AMPULE ONE (05:48)
[2017-09-11] MEDS ORDERED: HYDROMORPHONE HCL INJ/PF 2 MG/ML AMPULE IM ONE (05:48)
--- NOTE | 2017-09-11 06:01 | RADIOLOGY REPORT (SQ) ---
EXAM DESCRIPTION: CR right ankle three view CLINICAL HISTORY: 51 years, Male, fall, pain, swelling COMPARISON: None. LIMITATIONS: None. FINDINGS: Moderate diffuse swelling, mild osteoarthritis of the medial and lateral malleoli. IMPRESSION: Moderate swelling and mild osteoarthritis of the right ankle.
--- NOTE | 2017-09-11 06:01 | RADIOLOGY REPORT (SQ) ---
EXAM DESCRIPTION: CR Xr Knee 4 Or More Views CLINICAL HISTORY: 51 years, Male, fall, pain, swelling COMPARISON: None. NUMBER OF VIEWS: 4 LIMITATIONS: None. FINDINGS: Comminuted fracture of the proximal diametaphysis of the right fibula with 0.5 cm displacement. Atherosclerosis. No right knee effusion. IMPRESSION: Fracture of the proximal right fibula.
--- NOTE | 2017-09-11 06:01 | RADIOLOGY REPORT (SQ) ---
EXAM DESCRIPTION: CR, right foot three views CLINICAL HISTORY: 51 years, Male, fall, pain, swelling COMPARISON: None. LIMITATIONS: None. FINDINGS: Curvilinear lucency of the right first proximal phalangeal diaphysis on one view. Moderate diffuse swelling. IMPRESSION: Nondisplaced fracture/defect of the right first proximal phalanx.
[2017-09-11 07:20] VITALS: BP 127/86
== END 2017-09-11 06:37 | disposition home or self-care (01) ==
LOC: ER 02:43
PROC: 2W3QX1Z Immobilization of Right Lower Leg using Splint (ICD-10-PCS; principal; 2017-09-11)
DX: S92.911A Unspecified fracture of right toe(s), initial encounter for closed fracture (principal); S60.512A Abrasion of left hand, initial encounter; S60.511A Abrasion of right hand, initial encounter; M25.571 Pain in right ankle and joints of right foot; W01.0XXA Fall on same level from slipping, tripping and stumbling without subsequent striking against object, initial encounter; F17.200 Nicotine dependence, unspecified, uncomplicated; I10 Essential (primary) hypertension; Z23 Encounter for immunization
CPT/HCPCS: 90471; 90715; 99283

== ENCOUNTER 2017-09-17 02:16 | Emergency (ER) | payer OTHER ==
[2017-09-17] MEDS ORDERED: HYDROMORPHONE HCL 2 MG TABLET PO ONE (04:37)
[2017-09-17] MEDS ORDERED: KETOROLAC TROMETHAMINE INJ/PF 30 MG/1 ML SDV IM ONE (04:37)
--- NOTE | 2017-09-17 04:44 | ER Document Report ---
HPI - HPI Pain Level: 5 Notes: Patient is a 51-year-old male who presents to the ED requesting rewrap of his splint to his right lower extremity as well as pain treatment for tonight as he is having increased pain and has not been able to sleep at all. Patient states that he is still eating and drinking without difficulties. He is urinating normally and having normal bowel movements. Patient states that his foot does continue to swell up from time to time. He has not been able to follow-up with orthopedics as he states his daughter went to go libertarian instead of taking him to his appointment. Patient states that he has been ambulating on his foot and leg especially when he goes to smoke. Denies any drug allergies. No other concerns or complaints at this time. Denies any headache, fever, neck pain, URI , sore throat, chest pain, palpitations, syncope, cough, shortness of breath, wheeze, dyspnea, abdominal pain, nausea/vomiting/diarrhea, urinary retention, dysuria, hematuria, numbness/tingling, muscle paralysis/weakness, or rash. - ROS Systems Reviewed and Negative: Yes All other systems reviewed and negative - REPRODUCTIVE Reproductive: DENIES: : Past Medical History - Social History Smoking Status: Current Every Day Smoker Family History: COPD Patient has suicidal ideation: No Patient has homicidal ideation: No - Past Medical History Cardiac Medical History: Reports: Hx Hypertension Renal/ Medical History: Denies: Hx Peritoneal Dialysis GI Medical History: Reports: Hx Cirrhosis, Hx Liver Failure - Immunizations Immunizations up to date: No Hx Diphtheria, Pertussis, Tetanus Vaccination: Yes Vertical Provider Document - CONSTITUTIONAL Agree With Documented VS: Yes Notes: PHYSICAL EXAMINATION: GENERAL: Well-appearing, well-nourished and in no acute distress. LUNGS: Breath sounds clear to auscultation bilaterally and equal. No wheezes rales or rhonchi. HEART: Regular rate and rhythm without murmurs, rubs, gallops. Musculoskeletal: Rt LE: splint is very worn down and its integrity compromised. No obvious swelling or ecchymosis. N/V intact distal. Extremities: No cyanosis, clubbing, or edema b/l. Peripheral pulses 2+. Capillary refill less than 3 seconds. NEUROLOGICAL: Normal speech. Normal sensory, motor exams PSYCH: Normal mood, normal affect. SKIN: Warm, Dry, normal turgor, no rashes or lesions noted. - INFECTION CONTROL TRAVEL OUTSIDE OF THE [place] IN LAST 30 DAYS: No Course - Re-evaluation Re-evalutation: 09/17/17 04:55 Patient is an afebrile, well-hydrated, 51-year-old male who presents to the ED for wound care and worried well visit. Vitals are acceptable. PE is otherwise unremarkable for any neurovascular compromise. New splint was placed today due to the compromised integrity of his original one. Patient was already supposed to have that removed and something else placed by orthopedics, but patient did not go to his appointment. Toradol given IM. Conservative measures for symptoms. Schedule a new appointment with orthopedics, call tomorrow. Recheck with your PCM in 3-5 days as well. Return to the ED with any worsening/ concerning symptoms otherwise as reviewed discharge. Patient is in agreement. - Vital Signs Vital signs: Temp Pulse Resp BP Pulse Ox 99.0 F 96 16 145/120 H 99 09/17/17 02:45 09/17/17 02:45 09/17/17 02:45 09/17/17 02:45 09/17/17 02:45 Procedures - Immobilization Right Leg Time completed: 04:50 Pre-Proc Neuro Vasc Exam: Normal Immobilizer type: Posterior ankle Performed by: PCT Post-Proc Neuro Vasc Exam: Normal, Unchanged from pre-exam Discharge - Discharge Clinical Impression: Worried well, Encounter for wound care Condition: Stable Disposition: HOME, SELF-CARE Instructions: Splint Precautions ([facility]) Additional Instructions: Rest, Ice, Compression, Elevation Use splint as directed Tylenol/ibuprofen as needed Light stretches daily Strength exercises as able Moist heat and massage may help F/u with your PCP in 3-5 days for a recheck Consider consult(s) with Orthopedics/physical therapy for ongoing/worsening symptoms Return to the ED with any worsening symptoms and/or development of fever, headache, chest pain, palpitations, syncope, shortness of breath, trouble breathing, abdominal pain, n/v/d, muscle weakness/paralysis, numbness/tingling, swelling, redness, or other worsening symptoms that are concerning to you. Prescriptions: Meloxicam 7.5 mg PO BID PRN #30 tablet PRN Reason: Forms: Elevated Blood Pressure Referrals: [facility] ([place] [Provider Group] - Follow up in 3-5 days
[2017-09-17 05:38] VITALS: BP 142/98
== END 2017-09-17 05:38 | disposition home or self-care (01) ==
LOC: ER 02:16
PROC: 2W3QX1Z Immobilization of Right Lower Leg using Splint (ICD-10-PCS; principal; 2017-09-17)
DX: Z47.89 Encounter for other orthopedic aftercare (principal); M79.604 Pain in right leg; M79.89 Other specified soft tissue disorders; F17.200 Nicotine dependence, unspecified, uncomplicated; I10 Essential (primary) hypertension; Z71.1 Person with feared health complaint in whom no diagnosis is made
CPT/HCPCS: 99283; 96372; 29515; J1885

== ENCOUNTER 2017-09-24 02:39 | Emergency (ER) | payer OTHER ==
--- NOTE | 2017-09-24 02:53 | ER Document Report ---
ED General - General Stated Complaint: ABDOMINAL PAIN Time Seen by Provider: 09/24/17 02:52 Mode of Arrival: Medic Information source: Patient, Emergency Med Personnel Notes: 51-year-old gentleman with past medical history of alcoholic cirrhosis as well as ascites, recent fracture of his right proximal fibula who presented today for evaluation of distended abdomen as well as request for splint removal and other multiple requests. Patient is requesting x-ray to see if fracture is getting worse because he recently sustained another fall. Patient also requesting pain medication for his abdominal distention and discomfort. Patient previously seen at [facility] for management of his alcoholic cirrhosis. Patient is requesting paracentesis. Patient voluntarily removed his right lower extremity splint that was applied for his prior fracture. TRAVEL OUTSIDE OF THE [place] IN LAST 30 DAYS: No - Related Data Allergies/Adverse Reactions: No Known Allergies Allergy (Verified 08/31/17 21:38) Past Medical History - General Information source: Patient - Social History Smoking Status: Current Every Day Smoker Family History: COPD - Past Medical History Cardiac Medical History: Reports: Hx Hypertension Renal/ Medical History: Denies: Hx Peritoneal Dialysis GI Medical History: Reports: Hx Cirrhosis, Hx Liver Failure - Immunizations Immunizations up to date: No Hx Diphtheria, Pertussis, Tetanus Vaccination: Yes Review of Systems - Review of Systems Notes: REVIEW OF SYSTEMS: CONSTITUTIONAL: -fevers, -chills EENT: -eye pain, -difficulty swallowing, -nasal congestion CARDIOVASCULAR: -chest pain, -syncope. RESPIRATORY: -cough, -SOB GASTROINTESTINAL: -abdominal pain, -nausea, -vomiting, -diarrhea, + abdominal distention GENITOURINARY: -dysuria, -hematuria MUSCULOSKELETAL: -back pain, -neck pain, + right knee pain SKIN: + Skin erosions on his hands HEMATOLOGIC: -easy bruising or bleeding. LYMPHATIC: -swollen, enlarged glands. NEUROLOGICAL: -altered mental status or loss of consciousness, -headache, - neurologic symptoms PSYCHIATRIC: -anxiety, -depression. ALL OTHER SYSTEMS REVIEWED AND NEGATIVE. Physical Exam - Vital signs Vitals: Temp Pulse Resp BP Pulse Ox 97.7 F 94 18 129/78 H 96 09/24/17 02:54 09/24/17 02:54 09/24/17 02:54 09/24/17 02:54 09/24/17 02:54 Interpretation: Normal - Notes Notes: Reviewed vital signs and nursing note as charted by RN. CONSTITUTIONAL: Alert and oriented and responds appropriately to questions, appears to be in normal mentation, no signs of encephalopathy HEAD: Normocephalic; atraumatic EYES: PERRL ENT: normal nose; NECK: Supple without meningismus; non-tender; no cervical lymphadenopathy, no masses CARD: Regular rate and rhythm; no murmurs, no clicks, no rubs, no gallops; symmetric distal pulses RESP: Normal chest excursion without splinting or tachypnea; breath sounds clear and equal bilaterally ABD/GI: Normal bowel sounds; distended secondary to ascites, soft, no rigidity, no significant tenderness, patient has umbilical hernia with mild ulceration and no evidence of cellulitis Rectal: Patient has external hemorrhoid, tender to touch, no evidence of thrombosis BACK: The back appears normal and is non-tender to palpation EXT: Normal ROM in all joints; non-tender to palpation; no cyanosis, no effusions, generalized edema SKIN: Normal color for age and race; warm; dry; good turgor; capillary refill < 2 seconds; no acute lesions noted NEURO: Cranial nerves 3-12 intact. Motor strength 5/5 bilaterally. Sensation intact to touch bilaterally. No pronator drift. Finger to nose intact bilaterally PSYCH: The patient's mood is normal, appears to be demanding Course - Re-evaluation Re-evalutation: 51-year-old with alcoholic cirrhosis as well as recent right fibula fracture here for evaluation of abdominal distention and ascites Patient does not have any significant abdominal tenderness, therefore no suspicion for SBP Patient has no fevers, no chills Patient is requesting topical bacitracin to his hands as well as his umbilical hernia Patient is requesting pain medication as well as right knee film We will order x-ray as well as splint patient in a new splint Pain control with oxycodone I have told patient that we will not perform paracentesis today, 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 09/24/17 07:00 Patient feels well after pain medication X-ray with old fracture of the proximal fibula Patient was splinted in the new long leg splint, please see procedure note, follow-up with orthopedics, information provided We will give patient prescription for Preparation H suppository He is abrasions were treated with bacitracin Disposition planning was discussed with patient, agree with disposition home today and follow up with GI for further paracentesis - Vital Signs Vital signs: Temp Pulse Resp BP Pulse Ox 97.7 F 94 18 129/78 H 96 09/24/17 02:54 09/24/17 02:54 09/24/17 02:54 09/24/17 02:54 09/24/17 02:54 - Diagnostic Test Radiology reviewed: Image reviewed - Findings: Comminuted intra-articular fracture of the proximal right fibula, stable. Atherosclerosis.. Bones, joints , and soft tissues of the XR RIGHT TIBIA FIBULA 2 VIEWS appear otherwise intact. IMPRESSION: No significant change of the proximal right fibular fracture. Dictated by: SAMY UGALDE MD CC: RAY GALEANO MD Discharge - Discharge Clinical Impression: Skin abrasion, External hemorrhoid Alcoholic cirrhosis of liver Qualifiers: Ascites presence: with ascites Qualified Code(s): K70.31 - Alcoholic cirrhosis of liver with ascites Fibula fracture Qualifiers: Encounter type: subsequent encounter Fibula location: proximal Fracture type: closed Fracture morphology: other fracture Laterality: right Fracture healing: with routine healing Qualified Code(s): S82.831D - Other fracture of upper and lower end of right fibula, subsequent encounter for closed fracture with routine healing Condition: Stable Instructions: Splint Precautions ([facility]), Hemorrhoids ([facility]) Additional Instructions: You have been diagnosed with liver cirrhosis as well as ascites, please follow- up with your gastroenterology doctors for abdominal paracentesis You have been provided with a new splint of your right lower extremity, please avoid getting the splint wet, please come back if you have worsening leg pain, swelling, change in color of the skin or toes, please follow-up with orthopedic doctors for further management of the fracture Please come back if you have worsening fevers, chills, abdominal distention or pain Prescriptions: Hydrocortisone [Preparation H] 26 gm TP DAILY 10 Days #30 cream..g. Referrals: YVROSE OCONNOR MD [ACTIVE STAFF] - Follow up in 3-5 days
[2017-09-24] MEDS ORDERED: OXYCODONE HCL IR 5 MG TABLET PO ONE (03:51)
[2017-09-24] MEDS ORDERED: BACITRACIN ZINC OINTMENT 15 GM TP ONE (03:52)
--- NOTE | 2017-09-24 05:39 | RADIOLOGY REPORT (SQ) ---
EXAM DESCRIPTION: XR TIBIA FIBULA 2 VIEWS CLINICAL HISTORY: 51 years Male, pain COMPARISON: 5.10.18 Findings: Comminuted intra-articular fracture of the proximal right fibula, stable. Atherosclerosis.. Bones, joints, and soft tissues of the XR RIGHT TIBIA FIBULA 2 VIEWS appear otherwise intact. IMPRESSION: No significant change of the proximal right fibular fracture.
[2017-09-24 07:25] VITALS: BP 112/63
== END 2017-09-24 07:24 | disposition home or self-care (01) ==
LOC: ER 02:39
DX: S82.831D Other fracture of upper and lower end of right fibula, subsequent encounter for closed fracture with routine healing (principal); S80.811A Abrasion, right lower leg, initial encounter; K70.31 Alcoholic cirrhosis of liver with ascites; K64.4 Residual hemorrhoidal skin tags; R14.0 Abdominal distension (gaseous); W19.XXXD Unspecified fall, subsequent encounter; F17.200 Nicotine dependence, unspecified, uncomplicated; I10 Essential (primary) hypertension
CPT/HCPCS: 99284; 73590; J3490

== ENCOUNTER 2017-10-05 21:50 | Emergency (ER) | payer OTHER ==
[2017-10-05 23:08] VITALS: BP 122/82
--- NOTE | 2017-10-06 00:12 | ER Document Report ---
ED General - General Chief Complaint: Finger Injury Stated Complaint: FALL,FINGER LACERATION Time Seen by Provider: 10/05/17 23:27 Cannot obtain history due to: Intoxicated Notes: Patient is a 51-year-old male with a past medical history of chronic alcoholism with associated alcoholic liver cirrhosis who presents after apparently having mechanical fall prior to arrival. The patient reports that he tripped while walking when he stepped in a pothole falling on his bilateral hands. He states he is uncertain whether or not he has her neck. He is also complaining of right ankle pain which she states has been an ongoing issue for the past 3-4 weeks since he broke his distal fibula. Chart review demonstrates that the patient was seen and diagnosed with this and has taken off his splint on 2 separate occasions and is again not wearing a splint today. He has not followed up with orthopedic surgery. This is not a new injury today. History is otherwise limited secondary to the patient's intoxication. TRAVEL OUTSIDE OF THE [place] IN LAST 30 DAYS: No - Related Data Allergies/Adverse Reactions: No Known Allergies Allergy (Verified 08/31/17 21:38) Past Medical History - General Information source: Patient - Social History Smoking Status: Current Every Day Smoker Frequency of alcohol use: Heavy Drug Abuse: None Family History: COPD - Past Medical History Cardiac Medical History: Reports: Hx Hypertension Renal/ Medical History: Denies: Hx Peritoneal Dialysis GI Medical History: Reports: Hx Cirrhosis, Hx Liver Failure - Immunizations Immunizations up to date: No Hx Diphtheria, Pertussis, Tetanus Vaccination: Yes Review of Systems - Review of Systems Notes: Constitutional: Negative for fever. Eyes: Negative for visual changes. ENT: Negative for facial injury Cardiovascular: Negative for chest injury. Respiratory: Negative for shortness of breath. Gastrointestinal: Negative for abdominal injury. Genitourinary: Negative for genital injury Musculoskeletal: Positive bilateral hand injury and right leg pain Skin: Positive for laceration/abrasions. Neurological: Negative for head injury. Physical Exam - Vital signs Vitals: Temp Pulse Resp BP Pulse Ox 98.2 F 112 H 16 122/82 94 10/05/17 23:06 10/05/17 23:06 10/05/17 23:06 10/05/17 23:06 10/05/17 23:06 Interpretation: Tachycardic - Resolved at the time of my assessment Notes: PHYSICAL EXAMINATION: GENERAL: Intoxicated but in no acute distress. Disheveled and malodorous HEAD: Atraumatic, normocephalic. EYES: Pupils equal round and reactive to light, extraocular movements intact, sclera anicteric, conjunctiva are normal. ENT: nares patent, no oral pharyngeal trauma. No hemotympanum, no Moore's sign , no raccoon eyes. NECK: No midline cervical spine tenderness. Patient able to move their head to 45 bilaterally without any discomfort. LUNGS: Breath sounds clear to auscultation bilaterally and equal. No wheezes rales or rhonchi. HEART: Regular rate and rhythm without murmurs. CHEST WALL: No ecchymosis over the chest wall. ABDOMEN: Soft, distended with a fluid wave, nontender, normoactive bowel sounds. No guarding, no rebound. No abdominal bruising EXTREMITIES: Normal range of motion, no pitting or edema. No long bone deformities. Pain on palpation of the distal right fibula. BACK: No midline spinal tenderness, step-offs, or deformities. NEUROLOGICAL: Face symmetric. Tongue protrudes midline. Extraocular motions intact. Pupils are 2 mm and equally reactive. Moderately slurred speech. 5 out of 5 strength in both the distal and proximal upper and lower extremities bilaterally. Sensation is grossly intact throughout. PSYCH: Intoxicated disengaged with history taking and physical examination SKIN: Warm, Dry, normal turgor, multiple abrasions over the dorsal aspect of the bilateral hands and multiple knuckles of the bilateral hands. Course - Re-evaluation Re-evalutation: 10/06/17 00:10 Presentation of a well appearing elderly patient in no acute distress, vitals within normal limits after a mechanical fall while intoxicated. Patient denies a syncopal episode as the cause for today's fall. No focal neurologic deficits on exam, no evidence of basilar skull fracture on exam without evidence of hemotympanum, raccoon eyes, or periauricular hematoma. No papilledema. Patient is not on anticoagulation. GCS is 15. No loss of consciousness. No episodes of vomiting. However, based on patient's intoxicated status a CT of the head has been obtained which is negative for any acute intracranial bleed. Likewise, patient was unable to be clinically cleared due to intoxication by [place] cervical spine criteria. A CT of the cervical spine was also obtained and likewise is negative for any acute fracture. No indication for further imaging of the cervical spine. Patient has no focal deformities or limited range of motion in any joint space but does have abrasions and pain to the bilateral hands as well as the distal fibula on the right and he has a known fracture of the area and continues to remove the splint and failed follow-up with orthopedic surgery. X-rays do not show any new fractures or dislocations. Chest and abdominal exam are benign without any focal tenderness, shortness of breath, or bruising over the chest or abdominal wall. Patient has no flank tenderness. Patient is a long-standing history of alcoholic liver cirrhosis and does continue to drink heavily and is heavily intoxicated here in the emergency department today. I have informed him that he is killing himself with ongoing alcohol use which he acknowledges stating that he was using the alcohol to control his pain. I have again emphasized to him that alcohol is not an effective form of pain control and that he needs to discontinue his ongoing alcohol abuse. There is no obvious findings on trauma exam today and therefore no further imaging or evaluation will be obtained at this time. I have informed the patient about the thyroid nodule noted incidentally on the CT of the cervical spine and encouraged him to follow-up for a an outpatient ultrasound and biopsy. He has been provided a copy of the CT report. At this time will discharge with return precautions and follow-up recommendations. Verbal discharge instructions given a the bedside and opportunity for questions given. Medication warnings reviewed. Patient is in agreement with this plan and has verbalized understanding of return precautions and the need for primary care follow-up in the next 24-72 hours. - Vital Signs Vital signs: Temp Pulse Resp BP Pulse Ox 98.2 F 112 H 16 122/82 94 10/05/17 23:06 10/05/17 23:06 10/05/17 23:06 10/05/17 23:06 10/05/17 23:06 - Diagnostic Test Radiology reviewed: Image reviewed, Reports reviewed Radiology results interpreted by me: 10/06/17 02:36 CT head: No acute intracranial bleed or mass Bilateral hand x-rays: No acute fractures or dislocations Discharge - Discharge Clinical Impression: Multiple abrasions, Thyroid nodule Alcohol intoxication Qualifiers: Complication of substance-induced condition: with unspecified complication Qualified Code(s): F10.929 - Alcohol use, unspecified with intoxication, unspecified Fall Qualifiers: Encounter type: initial encounter Qualified Code(s): W19.XXXA - Unspecified fall, initial encounter Hand trauma Qualifiers: Encounter type: initial encounter Laterality: unspecified laterality Qualified Code(s): S69.90XA - Unspecified injury of unspecified wrist, hand and finger(s) , initial encounter Condition: Stable Disposition: HOME, SELF-CARE Additional Instructions: You were seen in the emergency department today for being drunk. Being seen in the emergency department after drinking alcohol is a serious indicator that you have a problem with alcohol. You should seek help with the attached resources for your problem drinking. Please return to the emergency room immediately if you experience any concerning symptoms including high fevers, severe headache, chest pain, difficulty breathing, abdominal pain, slurred speech, numbness or weakness in your arms or legs, or any other symptom that concerns you. You have been seen in the Emergency Department (ED) today following a fall while drunk. Your workup today did not reveal any injuries that require you to stay in the hospital. You can expect, though, to be stiff and sore for the next several days. You can apply a hot pack or electric heating pad to the sore areas. You can also use topical "Aspercreme with lidocaine" to sore areas as needed. Please follow up with your primary care doctor as soon as possible regarding today's ED visit and your recent accident. Call your doctor or return to the ED if you develop a sudden or severe headache , confusion, slurred speech, facial droop, weakness or numbness in any arm or leg, extreme fatigue, vomiting more than two times, severe abdominal pain, or other symptoms that concern you. The CT scan of your neck also incidentally showed a thyroid nodule. I recommend that you follow-up with your primary care doctor urgently to have an ultrasound of this area and consideration of a biopsy as this could be cancerous.
[2017-10-06] MEDS ORDERED: TRAMADOL HCL 50 MG TABLET PO ONE (00:34)
--- NOTE | 2017-10-06 01:33 | RADIOLOGY REPORT (SQ) ---
EXAM DESCRIPTION: CT of the cervical spine without contrast. CLINICAL HISTORY: fall, trauma COMPARISON: None available TECHNIQUE: Axial CT of the cervical spine obtained without contrast. FINDINGS: Alignment of the cervical spine is maintained without evidence of subluxation. The atlantoaxial, atlantodental, and occipitoatlantal intervals are preserved. 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 No fracture identified. Vertebral body height preserved. Prevertebral soft tissues are unremarkable. Mild loss of intervertebral disc height with endplate spondylosis, uncovertebral spurring, and facet arthropathy. No significant central canal nor osseous neural foraminal narrowing. Visualized skull base is intact. No fracture of the visualized facial bones. Visualized mastoid air cells and paranasal sinuses are well aerated. There is a 2.3 cm left thyroid hypodensity. No cervical lymphadenopathy. No pneumothorax in the visualized lung apices. DLP:509.36 mGy-cm IMPRESSION: 1. No acute fracture or subluxation of the cervical spine. 2. Moderate degenerative change of the cervical spine. 3. There is a 2.3 cm hypodense nodule in the left thyroid. Thyroid ultrasound recommended. This exam was performed according to our departmental dose-optimization program, which includes automated exposure control, adjustment of the mA and/or kV according to patient size and/or use of iterative reconstruction technique.
--- NOTE | 2017-10-06 01:34 | RADIOLOGY REPORT (SQ) ---
EXAM DESCRIPTION: CT of the head without contrast CLINICAL HISTORY: fall, trauma COMPARISON: None available TECHNIQUE: Axial CT of the head obtained from the skull apex to the skull base without contrast. FINDINGS: No acute intracranial hemorrhage identified. No mass, mass effect, shift of the midline, abnormal extra-axial fluid collection or CT evidence of acute ischemic change identified. The ventricular system and sulcal spaces are mildly enlarged compatible with mild cerebral atrophy. Scattered areas of hypodensity throughout the supratentorial white matter are nonspecific and may be related to chronic small vessel ischemic change. The visualized paranasal sinuses and the mastoids are clear. No skull fracture identified. Visualized orbits and globes are unremarkable. Atherosclerotic calcification of the intracranial internal carotid arteries. DLP: 955.07 mGy-cm IMPRESSION: 1. No acute intracranial abnormality by CT criteria. This exam was performed according to our departmental dose-optimization program, which includes automated exposure control, adjustment of the mA and/or kV according to patient size and/or use of iterative reconstruction technique.
--- NOTE | 2017-10-06 01:57 | RADIOLOGY REPORT (SQ) ---
EXAM DESCRIPTION: XR TIBIA FIBULA 2 VIEWS COMPLETED DATE/TME: 10/06/2017 00:09 CLINICAL HISTORY: 51 years, Male, fall, trauma COMPARISON: None. FINDINGS: 2 views of the right tibia and fibula. Redemonstrated proximal right fibular fracture. No new fractures identified. Normal osseous mineralization. IMPRESSION: 1. Stable proximal right fibular fracture. No new fractures identified. 2011 [employer]- All Rights Reserved
--- NOTE | 2017-10-06 02:00 | RADIOLOGY REPORT (SQ) ---
EXAM DESCRIPTION: XR HAND 2 VIEWS BILATERAL COMPLETED DATE/TME: 10/06/2017 00:09 CLINICAL HISTORY: 51 years, Male, fall, trauma COMPARISON: None. FINDINGS: Right hand: 2 views of the right hand. No acute fracture or dislocation. Normal osseous mineralization. Osteoarthritic change of the interphalangeal joints. Chondrocalcinosis of the triangular fibrocartilage. Left hand: 2 views of the left hand. No acute fracture or dislocation. Normal osseous mineralization. Osteoarthritic change of the interphalangeal joints. Chondrocalcinosis of the triangular fibrocartilage. IMPRESSION: No acute fracture or dislocation. 2010 [employer]- All Rights Reserved
[2017-10-06] MEDS ORDERED: DIPH/PERTUSS(ACELL)/TETANUS VAC/PF 0.5 ML SYR (>=10YO) IM ONE (02:36)
== END 2017-10-06 03:39 | disposition home or self-care (01) ==
LOC: ER 21:50
DX: S69.90XA Unspecified injury of unspecified wrist, hand and finger(s), initial encounter (principal); S60.512A Abrasion of left hand, initial encounter; S60.511A Abrasion of right hand, initial encounter; M25.571 Pain in right ankle and joints of right foot; M79.604 Pain in right leg; W18.30XA Fall on same level, unspecified, initial encounter; E04.1 Nontoxic single thyroid nodule; F10.929 Alcohol use, unspecified with intoxication, unspecified; I10 Essential (primary) hypertension
CPT/HCPCS: 70450; 72125; 99284

== ENCOUNTER 2017-11-13 19:10 | Emergency (ER) | payer OTHER ==
[2017-11-13] MEDS ORDERED: METOCLOPRAMIDE HCL INJ/PF 10 MG/2 ML SDV IV ONE (19:35)
[2017-11-13] MEDS ORDERED: MORPHINE SULFATE 10 MG/ML INJ IV ONE (19:36)
--- NOTE | 2017-11-13 19:43 | ER Document Report ---
ED General - General Chief Complaint: Abdominal Pain Stated Complaint: ABDOMINAL PAIN Time Seen by Provider: 11/13/17 19:22 Mode of Arrival: Medic Information source: Patient Notes: Patient is a 51-year-old male who presents via EMS for chief complaint of generalized abdominal pain. Patient reports the pain has been ongoing for the last 2 days with worsening today. Patient reports associated nausea and vomiting. Patient denies any diarrhea. Patient with history of cirrhosis, pancreatitis and chronic alcoholism. Patient reports that he last had a paracentesis done approximately 5-6 weeks ago in [facility]. Patient reports he has been drinking alcohol today. Patient denies any fevers, chills or shortness of breath. TRAVEL OUTSIDE OF THE [place] IN LAST 30 DAYS: No - Related Data Allergies/Adverse Reactions: No Known Allergies Allergy (Verified 08/31/17 21:38) Past Medical History - General Information source: Patient - Social History Smoking Status: Current Every Day Smoker Chew tobacco use (# tins/day): No Frequency of alcohol use: Heavy Drug Abuse: None Lives with: Alone Family History: COPD Patient has suicidal ideation: No Patient has homicidal ideation: No - Past Medical History Cardiac Medical History: Reports: Hx Hypertension Renal/ Medical History: Denies: Hx Peritoneal Dialysis GI Medical History: Reports: Hx Cirrhosis, Hx Liver Failure, Hx Pancreatitis Musculoskeletal Medical History: Reports None Skin Medical History: Reports None Psychiatric Medical History: Reports: None - Immunizations Immunizations up to date: No Hx Diphtheria, Pertussis, Tetanus Vaccination: Yes Review of Systems - Review of Systems Constitutional: No symptoms reported EENT: No symptoms reported Cardiovascular: No symptoms reported Respiratory: No symptoms reported Gastrointestinal: See HPI Genitourinary: No symptoms reported Male Genitourinary: No symptoms reported Musculoskeletal: No symptoms reported Skin: No symptoms reported Hematologic/Lymphatic: No symptoms reported Neurological/Psychological: No symptoms reported Physical Exam - Vital signs Vitals: Temp Pulse Resp BP Pulse Ox 98.3 F 107 H 15 129/95 H 98 11/13/17 21:29 11/13/17 21:29 11/13/17 21:29 11/13/17 21:29 11/13/17 21:29 - Notes Notes: PHYSICAL EXAMINATION: GENERAL: Disheveled white male, strong smell of EtOH, with smears of feces on front of pants and shirt. HEAD: Atraumatic, normocephalic. EYES: Pupils equal round and reactive to light, extraocular movements intact, sclera anicteric, conjunctiva are normal. ENT: Nares patent, oropharynx clear without exudates. Moist mucous membranes. NECK: Normal range of motion, supple without lymphadenopathy LUNGS: Breath sounds clear to auscultation bilaterally and equal. No wheezes rales or rhonchi. HEART: Regular rate and rhythm without murmurs ABDOMEN: Firm, tender, distended abdomen. No guarding, no rebound. Large mass noted around periumbilical area with a reproducible hernia the just superior to the umbilicus. Musculoskeletal: Normal range of motion, no pitting or edema. No cyanosis. NEUROLOGICAL: Cranial nerves grossly intact. Normal speech. Normal sensory, motor exams PSYCH: Normal mood, normal affect. SKIN: Warm, Dry, normal turgor, no rashes or lesions noted. Course - Re-evaluation Re-evalutation: 51-year-old male presenting with chief complaint of abdominal pain 2 days. Patient denies any fevers. Reports normal bowel movements. Patient reports that he believes he needs a paracentesis done. Patient is self admittedly acutely intoxicated. Patient's angry reporting that the last time he came her we did not have anybody qualified to do a paracentesis. Patient reports he is having a severe pain to his entire abdomen. Mild tachycardia noted, vitals otherwise normal. Abdomen is firm, distended and tender to palpation. Will draw labs at this time and provide nausea and pain medication. Instructed patient that I need to get lab results back before we can discuss paracentesis. CBC unremarkable. CMP with AST 140, direct bilirubin 0.8, otherwise no acute findings. Discussed case with Dr. Syed who agrees that patient does not need paracentesis at this time. Discussed results with patient who reports that his pain is better after receiving pain medications. Patient has not vomited while in the department. Patient will be discharged home with plan to follow up with his primary care provider regarding therapeutic paracentesis. Discussed Reducing intake of alcohol with patient. Patient given ED return precautions. - Vital Signs Vital signs: Temp Pulse Resp BP Pulse Ox 98.3 F 107 H 15 129/95 H 98 11/13/17 21:29 11/13/17 21:29 11/13/17 21:29 11/13/17 21:29 11/13/17 21:29 - Laboratory Result Diagrams: 11/13/17 20:10 11/13/17 20:10 Laboratory results interpreted by me: 11/13/17 11/13/17 20:10 20:10 RBC 4.21 L Hgb 10.3 L Hct 32.3 L MCV 77 L MCH 24.6 L RDW 22.4 H Plt Count 62 L Sodium 147.2 H Direct Bilirubin 0.8 H AST 140 H Total Protein 8.6 H Discharge - Discharge Clinical Impression: Ascites due to alcoholic cirrhosis Abdominal pain Qualifiers: Abdominal location: generalized Qualified Code(s): R10.84 - Generalized abdominal pain Condition: Stable Disposition: HOME, SELF-CARE Additional Instructions: Your labs today were normal. I have given you contact information for two different primary care providers here in [facility]. Please follow up with them for continued medical care. Please stop drinking alcohol as this is contributing to your chronic abdominal pain and distention. Referrals: [facility] [Provider Group] - Follow up as needed [facility] [Provider Group] - Follow up as needed
[2017-11-13 20:30] LABS: ABSOLUTE EOSINOPHILS # (AUTO) 0.1 10^3/uL (0.0-0.6); ABSOLUTE LYMPHOCYTES (AUTO) 1.3 10^3/uL (0.5-4.7); ABSOLUTE MONOCYTES (AUTO) 0.5 10^3/uL (0.1-1.4); ABSOLUTE NEUT (AUTO) 5.5 10^3/uL (1.7-8.2); BASOPHILS % (AUTO) 0.6 % (0-2); EOSINOPHILS % (AUTO) 0.8 % (0-6); HEMATOCRIT 32.3 % (37.9-51.0); HEMOGLOBIN 10.3 g/dL (13.5-17.0); LYMPHOCYTES % (AUTO) 17.6 % (13-45); MEAN CORPUSCULAR HEMOGLOBIN 24.6 pg (27.0-33.4); MEAN CORPUSCULAR VOLUME 77 fl (80-97); MONOCYTES % (AUTO) 6.4 % (3-13); RED BLOOD COUNT 4.21 10^6/uL (4.35-5.55); RED CELL DISTRIBUTION WIDTH 22.4 % (11.5-14.0); SEGMENTED NEUTROPHILS % (AUTO) 74.6 % (42-78); TOTAL CELLS COUNTED % (AUTO) 100 %; WHITE BLOOD COUNT 7.4 10^3/uL (4.0-10.5)
[2017-11-13 20:36] LABS: ALANINE AMINOTRANSFERASE 41 U/L (21-72); ALBUMIN 3.9 g/dL (3.5-5.0); ALKALINE PHOSPHATASE 118 U/L (38-126); ANION GAP 17 (5-19); ASPARTATE AMINO TRANSFERASE 140 U/L (17-59); BILIRUBIN,DIRECT 0.8 mg/dL (0.0-0.4); BILIRUBIN,TOTAL 1.3 mg/dL (0.2-1.3); BLOOD UREA NITROGEN 8 mg/dL (7-20); CALCIUM 8.4 mg/dL (8.4-10.2); CARBON DIOXIDE 28 mmol/L (22-30); CHLORIDE 102 mmol/L (98-107); GLUCOSE 98 mg/dL (75-110); LIPASE 237.9 U/L (23-300); POTASSIUM 3.6 mmol/L (3.6-5.0); SODIUM 147.2 mmol/L (137-145); TOTAL PROTEIN 8.6 g/dL (6.3-8.2)
[2017-11-13 20:50] LABS: PLATELET COUNT 62 10^3/uL (150-450)
[2017-11-13 21:30] VITALS: BP 129/95
== END 2017-11-13 21:30 | disposition home or self-care (01) ==
LOC: ER 19:10
DX: K70.31 Alcoholic cirrhosis of liver with ascites (principal); R10.84 Generalized abdominal pain; R11.2 Nausea with vomiting, unspecified; F17.200 Nicotine dependence, unspecified, uncomplicated; I10 Essential (primary) hypertension
CPT/HCPCS: 99284; 96374; 96375; 36415; 83690; 85025; 80053; J2765; J2270